=== PATIENT | female | born 1960 | race Caucasian/White ===

== ENCOUNTER → 2018-11-08 09:23 | Outpatient (CLI) | payer BC, SELFPAY ==
[2018-11-07 11:03] VITALS: BMI 26.8
[2018-11-08 11:10] LABS: Cholesterol 189 mg/dL (200); Glucose 90 mg/dL (74-106); High Density Lipoprotein 59 mg/dL; Triglycerides 57 mg/dL; Very Low Density Lipoprotein 11 mg/dL (5-40)
[2018-11-08 11:21] LABS: Vitamin D,25 Hydroxy 27.5 ng/mL (29.95-100.01)
== END ==
PROVIDERS: Family Provider Family Medicine; PCP Family Medicine; Referring Provider Obstetrics & Gynecology; Visit Provider Obstetrics & Gynecology
DX: Z01.419 Encounter for gynecological examination (general) (routine) without abnormal findings (principal)
CPT/HCPCS: 36415; 80061; 82306; 82947

== ENCOUNTER → 2018-11-17 13:33 | Outpatient (CLI) | payer BC, SELFPAY ==
[2018-11-07 11:03] VITALS: BMI 26.8
--- NOTE | 2018-11-17 13:36 | BI_ITS ---
MAMMOGRAPHY - BILATERAL SCREENING REASON FOR EXAM: Female, 58 years old. Routine annual screening examination. PERTINENT HISTORY: Non-contributory. TECHNIQUE: Digital bilateral breast oz (3D mammographic acquisition) in the CC and MLO projections. 2-D mediolateral oblique (MLO) and craniocaudad (CC) views of both breasts were obtained. CAD: Full Field Digital Mammography with Computer Added Detection was performed. COMPARISON: Comparison is made with prior study dated September 01, 2017 and November 14, 2015. FINDINGS: Breast Composition: The breasts are extremely dense, which lowers the sensitivity of mammography. There are no dominant masses or suspicious calcifications. No other significant abnormalities are identified. There has been no significant change since the prior study. BI/SCREEN MAMM (CAD) W/OZ BILAT IMPRESSION: Stable bilateral screening mammogram. Yearly follow-up mammogram recommended. (A) ASSESSMENT CATEGORY: BIRADS Category 1: Negative. A letter regarding these results will be sent to the patient by the facility within 30 days. Approximately 10% of breast cancers are not detected by mammography. A normal mammogram should not delay biopsy of a clinically suspicious abnormality. [id number] Electronically Signed: River Alanis, at 15:21 EST , Service support ,
== END ==
PROVIDERS: Family Provider Family Medicine; PCP Family Medicine; Visit Provider Obstetrics & Gynecology
DX: Z12.31 Encounter for screening mammogram for malignant neoplasm of breast (principal)
CPT/HCPCS: 77063; 77067

== ENCOUNTER → 2019-10-26 | Outpatient (CLI) | payer BC, SELFPAY ==
[2019-10-12 16:00] VITALS: BMI 26.8
--- NOTE | 2019-10-26 13:54 | BD_ITS ---
STUDY: DUAL ENERGY X-RAY ABSORPTIOMETRY / DXA REASON FOR EXAM: Female, 59 years old. Age of isabella- 55. Pat is 157.8# and 64 and quot;. Past use of a diuretic. Takes Calcium and a multi-vit off and on. Exercises off and on. TECHNIQUE: Bone Mineral Density (BMD) measurements of lumbar spine and bilateral hips were obtained. COMPARISON: None. FINDINGS: Lumbar Spine (L1-L4): g/cm2 (1.221) / T-score (0.3) / Z-score (1.6) Findings are suggestive of normal bone density with a low fracture risk. Left Femur Total: g/cm2 (1.004) / T-score (0.0) / Z-score (0.9) Left Femoral Neck: g/cm2 (0.928) / T-score (-0.8) / Z-score (0.5) Right Femur Total: g/cm2 (0.994) / T-score (-0.1) / Z-score (0.8) Right Femoral Neck: g/cm2 (0.914) / T-score (-0.9) / Z-score (0.4) BD/Dexa Bone Density Study IMPRESSION: The patient is considered normal as outlined below according to World [employer] Organization (WHO) criteria with a low fracture risk. Reference Information: The T-score is the number of standard deviations above or below the standard which is normal for young adults at their peak bone mineral density. The World Health Organization (WHO) interprets the T-scores as follows: Above -1 Normal bone density Between -1 and -2.5 Osteopenia Equal to / or below -2.5 Osteoporosis As a practical clinical guideline, osteopenia may be graded as follows: Mild -1 through -1.5 Moderate -1.6 through -2.0 Severe -2.1 through -2.4 The Z-score is the number of standard deviations above or below age-matched controls. A Z-score of less than -1.5 would be considered abnormal. References: 1. NIH Osteoporosis and Related Bone Diseases http://www.osteo.org 2. International Society for Clinical Densitometry http://www.iscd.org 3. National Osteoporosis Foundation http://www.nof.org Electronically Signed: River Alanis, at 12:55 EST , Service support ,
== END | disposition home or self-care (01) ==
PROVIDERS: PCP Family Medicine; Referring Provider Obstetrics & Gynecology; Visit Provider Obstetrics & Gynecology
DX: E28.39 Other primary ovarian failure (principal)
CPT/HCPCS: 77080

== ENCOUNTER → 2019-10-30 | Outpatient (CLI) | payer BC, SELFPAY ==
[2019-10-30 10:33] VITALS: BMI 26.8
== END | disposition home or self-care (01) ==
LOC: LABSPEC 16:22
PROVIDERS: PCP Family Medicine; Referring Provider Nurse Practitioner Women's Health; Visit Provider Nurse Practitioner Women's Health
DX: N39.0 Urinary tract infection, site not specified (principal)
CPT/HCPCS: 87086; 87088; 87186

== ENCOUNTER → 2020-07-03 | Outpatient (CLI) | payer SELFPAY ==
[2020-07-03 09:18] VITALS: BMI 26.2
[2020-07-08 10:41] LABS: HPV APTIMA, High Risk Negative (Negative)
== END | disposition home or self-care (01) ==
LOC: LABSPEC 13:04
PROVIDERS: PCP Family Medicine; Referring Provider Nurse Practitioner Women's Health; Visit Provider Nurse Practitioner Women's Health
DX: Z12.4 Encounter for screening for malignant neoplasm of cervix (principal)
CPT/HCPCS: 87624; 88175; G0145

== ENCOUNTER → 2020-07-12 | Outpatient (CLI) | payer SELFPAY ==
[2020-05-10 10:21] VITALS: BMI 26.8
[2020-07-03 09:18] VITALS: BMI 26.2
--- NOTE | 2020-07-12 15:56 | BI_ITS ---
MAMMOGRAPHY - BILATERAL SCREENING REASON FOR EXAM: Female, 60 years old. Routine annual screening examination. PERTINENT HISTORY: Non-contributory. TECHNIQUE: Digital bilateral breast oz (3D mammographic acquisition) in the CC and MLO projections. 2-D mediolateral oblique (MLO) and craniocaudad (CC) views of both breasts were obtained. CAD: Full Field Digital Mammography with Computer Added Detection was performed. COMPARISON: Comparison is made with prior study dated 11/17/2018 and 09/01/2017. FINDINGS: Breast Composition: The breasts are extremely dense, which lowers the sensitivity of mammography. There are no dominant masses or suspicious calcifications. No other significant abnormalities are identified. There has been no significant change since the prior study. BI/SCREEN MAMM (CAD) W/OZ BILAT IMPRESSION: Stable bilateral screening mammogram. Yearly follow-up mammogram recommended. (A) ASSESSMENT CATEGORY: BIRADS Category 1: Negative. A letter regarding these results will be sent to the patient by the facility within 30 days. Approximately 10% of breast cancers are not detected by mammography. A normal mammogram should not delay biopsy of a clinically suspicious abnormality. [id number] Electronically Signed: River Alanis, at 8:11 EST , Service support ,
== END | disposition home or self-care (01) ==
LOC: OPBI 15:56
PROVIDERS: PCP Family Medicine; Referring Provider Obstetrics & Gynecology; Visit Provider Obstetrics & Gynecology
DX: Z12.31 Encounter for screening mammogram for malignant neoplasm of breast (principal)
CPT/HCPCS: 77063; 77067

== ENCOUNTER → 2021-07-14 | Outpatient (CLI) | payer SELFPAY | END | disposition home or self-care (01) | PROVIDERS: PCP Family Medicine; Referring Provider Obstetrics & Gynecology; Visit Provider Obstetrics & Gynecology | DX: R30.0 Dysuria (principal) | CPT/HCPCS: 87086; 87088; 87186 ==

== ENCOUNTER → 2021-07-24 09:34 | Outpatient (CLI) | payer SELFPAY ==
[2021-07-24 12:34] LABS: Vitamin D,25 Hydroxy 41.5 ng/mL
[2021-07-24 12:41] LABS: ALB/GLOB Ratio 0.9 RATIO (0.9-2.4); AST(SGOT) 24 U/L (15-37); Alanine Aminotransfer ALT/SGPT 24 U/L (13-56); Albumin, Serum 3.7 g/dL (3.2-5.0); Alkaline Phosphatase 72 U/L (45-117); Anion Gap 6 (5-15); BUN 21 mg/dL (7-18); BUN/Creat Ratio 24.3 RATIO (10-20); Calcium,Total 8.9 mg/dL (8.5-10.1); Chloride 104 mmol/L (98-107); Cholesterol 203 mg/dL (200); Creatinine, Serum 0.86 mg/dL (0.55-1.02); EST Glomerular Filtration Rate 71 mL/min (>60); Est Glom Filt Rate - Afr Amer 86 mL/min (>60); Globulin 3.9 g/dL (2.2-4.2); Glucose 79 mg/dL (74-106); High Density Lipoprotein 56 mg/dL; Potassium 4.1 mmol/L (3.5-5.1); Protein, Total 7.6 g/dL (6.4-8.2); Sodium Level 139 mmol/L (136-145); Thyroid Stim Hormone (TSH) 3.04 uIU/mL (0.358-3.74); Triglycerides 75 mg/dL; Very Low Density Lipoprotein 15 mg/dL (5-40)
== END ==
PROVIDERS: PCP Family Medicine; Referring Provider Obstetrics & Gynecology; Visit Provider Obstetrics & Gynecology
DX: Z01.419 Encounter for gynecological examination (general) (routine) without abnormal findings (principal)
CPT/HCPCS: 36415; 80053; 80061; 82306; 84443

== ENCOUNTER → 2021-08-06 12:41 | Outpatient (CLI) | payer SELFPAY ==
--- NOTE | 2021-08-06 12:48 | BI_ITS ---
MAMMOGRAPHY - BILATERAL SCREENING 3-D TOMOSYNTHESIS REASON FOR EXAM: Female, 61 years old. Routine screening PERTINENT HISTORY: No significant family history. TECHNIQUE: 2-D mammograms and 3-D Tomosynthesis of the breast (s) were performed. CAD was performed. COMPARISON: 07/12/2020 FINDINGS: The breast composition is heterogeneously dense that can obscure small breast masses. Scattered benign calcifications are seen. No dense spiculated masses or suspicious microcalcifications are identified. No architectural distortion is identified. There is no skin thickening or retraction. There has been no significant change since the prior study. BI/SCRN MAMM (CAD)W/OZ BILAT IMPRESSION: No mammographic signs of malignancy. Routine yearly mammograms recommended. ASSESSMENT CATEGORY: BIRADS Category 2: Benign. A letter regarding these results will be sent to the patient by the facility within 30 days. FOLLOW UP RECOMMENDATION: Yearly follow up mammogram recommended. (A) Approximately 10% of breast cancers are not detected by mammography. A normal mammogram should not delay biopsy of a clinically suspicious abnormality. Electronically Signed: Robert Mace MD at 14:25 EST , Service support ,
== END ==
PROVIDERS: PCP Family Medicine; Referring Provider Obstetrics & Gynecology; Visit Provider Obstetrics & Gynecology
DX: Z12.31 Encounter for screening mammogram for malignant neoplasm of breast (principal)
CPT/HCPCS: 77063; 77067

== ENCOUNTER → 2022-01-16 | Outpatient (CLI) | payer SELFPAY ==
--- NOTE | 2022-01-16 12:04 | US_ITS ---
STUDY: RENAL ULTRASOUND - COMPLETE REASON FOR EXAM: Female, 61 years old. UTI TECHNIQUE: Ultrasound evaluation of the kidneys was performed with real-time and static villar-scale imaging. COMPARISON: None. FINDINGS: RIGHT KIDNEY: Normal location of the right kidney, which is normal in size. The right kidney measures 11.4 cm x 5.6 cm x 4.5 cm. There is a normal cortex of the right kidney. The renal cortex measures 1.3 cm. There is a 1.7 cm x 1.6 cm x 1.6 cm right parapelvic cyst. There are no right renal calculi. There is no right hydronephrosis. DISTAL RIGHT URETER: There is non-visualization of the distal right ureter. There is no demonstrated right ureterovesical junction calculus. There is a visualized right ureteral jet. LEFT KIDNEY: Normal location of the left kidney, which is normal in size. The left kidney measures 11 cm x 4.7 cm x 5.4 cm. There is a normal cortex of the left kidney. The renal cortex measures 1.2 cm. Small parapelvic cysts are seen. The largest measures 9 mm x 9 mm x 10 mm. There are no left renal calculi. There is no left hydronephrosis. DISTAL LEFT URETER: There is non-visualization of the distal left ureter. There is no demonstrated left ureterovesical junction calculus. There is a visualized left ureteral jet. BLADDER: The distended urinary bladder has a volume of 280 ml. There is a normal wall thickness of the distended urinary bladder. There is no demonstrated mass within the urinary bladder. There are no demonstrated bladder calculi. In the right hemipelvis, incidental note is made of a 6.5 cm x 5.3 cm x 5.6 cm solid mass. This is separate from the uterus. A dedicated ultrasound of the pelvis is recommended. US/Kidney and Bladder IMPRESSION: Bilateral parapelvic cysts. Incidental note is made of a 6.5 cm x 5.3 cm x 5.6 cm solid mass in the right adnexa. A dedicated pelvic sonogram is recommended. Electronically Signed: River Alanis MD at 14:42 EDT ,
== END | disposition home or self-care (01) ==
PROVIDERS: Visit Provider Urology
DX: N39.0 Urinary tract infection, site not specified (principal)
CPT/HCPCS: 76770

== ENCOUNTER → 2022-06-04 | Outpatient (CLI) | payer SELFPAY ==
--- NOTE | 2022-06-04 10:29 | RAD_ITS ---
STUDY: X-RAY - LEFT KNEE REASON FOR EXAM: Medial left knee pain and swelling for 1 to 2 months, no specific injury. TECHNIQUE: 4 view(s) of the knee. COMPARISON: None. FINDINGS: Normal visualized distal femur. Normal visualized proximal tibia and fibula. Normal proximal tibiofibular articulation. There is mild joint space narrowing of the medial femorotibial compartment. Normal lateral femorotibial compartment. Normal patellofemoral articulation. The soft tissue structures are unremarkable. RAD/Knee 4 or More Views IMPRESSION: Mild arthrosis of the medial femorotibial compartment. Electronically Signed: Emmanuel Clarke MD at 15:03 EDT ,
== END | disposition home or self-care (01) ==
LOC: MTLAB 10:20 → MTRAD 10:22
PROVIDERS: PCP Internal Medicine; Referring Provider Internal Medicine; Visit Provider Internal Medicine
DX: M25.562 Pain in left knee (principal)
CPT/HCPCS: 73564

== ENCOUNTER → 2022-08-20 | Outpatient (CLI) | payer SELFPAY ==
--- NOTE | 2022-08-20 09:51 | BI_ITS ---
MAMMOGRAPHY - BILATERAL SCREENING REASON FOR EXAM: Female, 62 years old. Routine annual screening examination. PERTINENT HISTORY: Non-contributory. TECHNIQUE: Digital bilateral breast oz (3D mammographic acquisition) in the CC and MLO projections. 2-D mediolateral oblique (MLO) and craniocaudad (CC) views of both breasts were obtained. CAD: Full Field Digital Mammography with Computer Added Detection was performed. COMPARISON: Comparison is made with prior study 08/06/2021 and 07/12/2020. FINDINGS: Breast Composition: The breasts are extremely dense, which lowers the sensitivity of mammography. There are no dominant masses or suspicious calcifications. Stable small benign-appearing bilateral axillary. No other significant abnormalities are identified. There has been no significant change since the prior study. BI/SCRN MAMM (CAD)W/OZ BILAT IMPRESSION: Stable bilateral screening mammogram. Yearly follow-up mammogram recommended. (A) ASSESSMENT CATEGORY: BIRADS Category 2: Benign. A letter regarding these results will be sent to the patient by the facility within 30 days. Approximately 10% of breast cancers are not detected by mammography. A normal mammogram should not delay biopsy of a clinically suspicious abnormality. [id number] Electronically Signed: River Alanis MD at 11:53 EST ,
== END | disposition home or self-care (01) ==
PROVIDERS: PCP Internal Medicine; Referring Provider Obstetrics & Gynecology; Visit Provider Obstetrics & Gynecology
DX: Z12.31 Encounter for screening mammogram for malignant neoplasm of breast (principal)
CPT/HCPCS: 77063; 77067

== ENCOUNTER → 2023-09-15 | Outpatient (CLI) | payer SELFPAY ==
--- NOTE | 2023-09-15 08:45 | BI_ITS ---
MAMMOGRAPHY - BILATERAL SCREENING REASON FOR EXAM: Female, 63 years old. Routine annual screening examination. PERTINENT HISTORY: Non-contributory. TECHNIQUE: Digital bilateral breast oz (3D mammographic acquisition) in the CC and MLO projections. 2-D mediolateral oblique (MLO) and craniocaudad (CC) views of both breasts were obtained. CAD: Full Field Digital Mammography with Computer Added Detection was performed. COMPARISON: Comparison is made with prior study dated August 20, 2022 and August 06, 2021. FINDINGS: Breast Composition: The breasts are extremely dense, which lowers the sensitivity of mammography. There are no dominant masses or suspicious calcifications. No other significant abnormalities are identified. There has been no significant change since the prior study. BI/SCRN MAMM (CAD)W/OZ BILAT IMPRESSION: Stable bilateral screening mammogram. Yearly follow-up mammogram recommended. (A) ASSESSMENT CATEGORY: BIRADS Category 1: Negative. A letter regarding these results will be sent to the patient by the facility within 30 days. Approximately 10% of breast cancers are not detected by mammography. A normal mammogram should not delay biopsy of a clinically suspicious abnormality. [id number] Electronically Signed: River Alanis MD at 13:10 EST ,
== END | disposition home or self-care (01) ==
PROVIDERS: PCP Internal Medicine; Referring Provider Obstetrics & Gynecology; Visit Provider Obstetrics & Gynecology
DX: Z12.31 Encounter for screening mammogram for malignant neoplasm of breast (principal)
CPT/HCPCS: 77063; 77067

== ENCOUNTER → 2024-08-02 | Outpatient (CLI) | payer OTHER, SELFPAY ==
--- NOTE | 2024-08-02 11:50 | BD_ITS ---
STUDY: DUAL ENERGY X-RAY ABSORPTIOMETRY / DXA REASON FOR EXAM: Female, 64 years old. Estrogen Deficiency TECHNIQUE: Bone Mineral Density (BMD) measurements of lumbar spine and bilateral hips were obtained. COMPARISON: Comparison is made with prior study dated October 26, 2019. FINDINGS: Lumbar Spine (L1-L4): g/cm2 (1.069) / T-score (0.1) / Z-score (1.9) Findings are suggestive of normal bone density with a low fracture risk. Left Femur Total: g/cm2 (0.911) / T-score (-0.3) / Z-score (1.0) Left Femoral Neck: g/cm2 (0.735) / T-score (-1.0) / Z-score (0.5) Right Femur Total: g/cm2 (0.886) / T-score (-0.5) / Z-score (0.8) Right Femoral Neck: g/cm2 (0.713) / T-score (-1.2) / Z-score (0.3) The T-Scores on the most recent prior examination were: Lumbar Spine (L1-L4): There has been worsening of bone density since the previous examination. Left Femur Total: which represents a worsening of .8%. Right Femur Total: which represents a worsening of 4.5%. BD/Dexa Bone Density Study IMPRESSION: The patient is considered osteopenic as outlined below according to World [place] Organization (WHO) criteria with a low fracture risk. There has been worsening of bone density since the previous examination. Reference Information: The T-score is the number of standard deviations above or below the standard which is normal for young adults at their peak bone mineral density. The World Health Organization (WHO) interprets the T-scores as follows: Above -1 Normal bone density Between -1 and -2.5 Osteopenia Equal to / or below -2.5 Osteoporosis As a practical clinical guideline, osteopenia may be graded as follows: Mild -1 through -1.5 Moderate -1.6 through -2.0 Severe -2.1 through -2.4 The Z-score is the number of standard deviations above or below age-matched controls. A Z-score of less than -1.5 would be considered abnormal. References: 1. NIH Osteoporosis and Related Bone Diseases www osteo.org 2. International Society for Clinical Densitometry www iscd.org 3. National Osteoporosis Foundation www nof.org Electronically Signed: River Alanis MD at 15:25 EST ,
--- NOTE | 2024-08-02 11:50 | BI_ITS ---
MAMMOGRAPHY - BILATERAL SCREENING REASON FOR EXAM: Female, 64 years old. Routine annual screening examination. PERTINENT HISTORY: Non-contributory. TECHNIQUE: Digital bilateral breast oz (3D mammographic acquisition) in the CC and MLO projections. 2-D mediolateral oblique (MLO) and craniocaudad (CC) views of both breasts were obtained. CAD: Full Field Digital Mammography with Computer Added Detection was performed. COMPARISON: Comparison is made with prior study dated September 15, 2023 and August 20, 2022. FINDINGS: Breast Composition: The breasts are extremely dense, which lowers the sensitivity of mammography. There are no dominant masses or suspicious calcifications. No other significant abnormalities are identified. There has been no significant change since the prior study. BI/SCRN MAMM (CAD)W/OZ BILAT IMPRESSION: Stable bilateral screening mammogram. Yearly follow-up mammogram recommended. (A) ASSESSMENT CATEGORY: BIRADS Category 1: Negative. A letter regarding these results will be sent to the patient by the facility within 30 days. Approximately 10% of breast cancers are not detected by mammography. A normal mammogram should not delay biopsy of a clinically suspicious abnormality. [id number] Electronically Signed: River Alanis MD at 13:17 EST ,
== END | disposition home or self-care (01) ==
LOC: OPBD 11:50
PROVIDERS: PCP Internal Medicine; Referring Provider Obstetrics & Gynecology; Visit Provider Obstetrics & Gynecology
DX: Z12.31 Encounter for screening mammogram for malignant neoplasm of breast (principal); E28.39 Other primary ovarian failure
CPT/HCPCS: 77063; 77067; 77080

== ENCOUNTER → 2024-09-12 | Outpatient (CLI) | payer MEDICARE, SELFPAY | END | disposition home or self-care (01) | LOC: MTLAB 15:21 | PROVIDERS: PCP Internal Medicine; Referring Provider Urology; Visit Provider Urology | DX: N39.0 Urinary tract infection, site not specified (principal) | CPT/HCPCS: 36415; 87086; 87088 ==

== ENCOUNTER → 2025-03-01 | Outpatient (CLI) | payer MEDICARE, SELFPAY ==
--- OUTSIDE RECORDS SUMMARY | 2025-03-01 07:43 | XMS RPT_ITS | CCD ---
Author Organization [facility] Care Team Providers Care Senior Windows Systems Administrator Name Role Phone Dora Mcintyre MD Unavailable [phone] ARTHUR Kumar RN, Wanda A Unavailable Unavailabl e Bahman SHREDDING SPECIALIST, Juliana S Unavailable ARTHUR Kumar RN, Wanda A Unavailable Unavailabl e Parnell SHREDDING SPECIALIST, Juliana S Unavailable ARTHUR Kumar RN, Wanda A Unavailable Unavailabl francois Kumar RN RN, Wanda A Unavailable Unavailabl e Dora Mcintyre MD Unavailable [phone] No, Physician Primary Care Provider Unavailabl e Fast DO, Tahira A Primary Care Provider Fast DO, Tahira A Unavailable Slarb FIRE MANAGER, Danielle Unavailable Unavailable Unavailable Unavailable Fast DO, Tahira A Attending Unavailable Fast DO, Tahira A Consulting Unavailable Manchak JOURNEYMAN MOLDER, Jing Unavailable Unavailable Fast DO, Tahira A Unavailable ROSALIE MICHELLE Attending Unavai lable NO, PHYSICIAN Primary Care Unavailable No, Physician Primary Care Provider Unavailabl e Fast DO, Tahira A Primary Care Provider FAST, TAHIRA A Referring Unavailable FAST, TAHIRA A Primary Care Unavailable TYLER BAUTISTA Referring Unavai lable NO, PHYSICIAN Primary Care Unavailable HELEN GRANT Attending Unavailabl e Fast DO, Dr. Hoffmann Primary Care Provider [phone] Minoo ACOSTA, Dr. Baltazar Attending Provider Aure Bush Attending Unavailable Aure Bush Referring Unavailable Fast, Tahira Primary Care Unavailable Dora Mcintyre Attending Unavailable Dora Mcintyre Referring Unavailable Fast, Tahira Primary Care Unavailable Fast, Tahira Attending Unavailable Fast, Tahira Referring Unavailable Fast, Tahira Primary Care Unavailable Giovanny Hennessy Attending Unavailable Fast, Tahira Primary Care Unavailable Dora Mcintyre Attending Unavailable Fast, Tahira Referring Unavailable Fast, Tahira Primary Care Unavailable Allergies Allergy Classification Reported Allergen(s) Allergy Type Date of Onset Reaction(s) Facility Sulfonamides (antibiotic) (1 source) Sulfonamides (Antibiotic) Drug Allergy 10-19-19 06 [facility] (12 sources) sulfamethoxazole / trimethoprim drug allergy 12-29-19 17 [facility] (1 source) Sulfonamides (Antibiotic) Propensity to adverse reactions to drug 10-19-19 [facility] (11 sources) Sulfonamides (Antibiotic); Translations: [Sulfa Drugs] Allergy to substance (finding) [facility]; [facility] Work Phone: Comment on above: hives (5 sources) Sulfonamides (Antibiotic); Translations: [SULFA (SULFONAMIDE ANTIBIOTICS)] Allergy to substance 10-19-19 06 Unknown [facility] Repository (2 sources) Sulfonamides (Antibiotic) Propensity to adverse reactions to drug 10-19-19 06 [facility] (1 source) ALLERGIES NOT ON FILE; Translations: [ALLERGIES NOT ON FILE] Propensity to adverse reactions (disorder) [facility] 2 Repository (1 source) Sulfonamides (Antibiotic) Drug allergy (disorder) 06-07-20 [facility] Repository Medications Current Medications Medication Drug Class(es) Dates Sig (Normalized) Sig (Original) ALPRAZolam 0.25 mg disintegrating oral tablet (1 source) Benzodiazepine Start: 01-28-2022 ALPRAZolam (NIRAVAM) dissolvable tablet 0.25 mg amoxicillin 875 mg oral tablet (1 source) Penicillin-class Antibacterial Start: 05-16-2023 End: 05-26-2023 take 1 tablet by mouth twice daily amoxicillin (AMOXIL) 875 MG tablet Indications: UTI symptoms Take 1 (one) tablet (875 mg total) by mouth 2 (two) times a day for 10 days . 20 tablet 0 05/16/2023 05/26/2023 Active BLACK ELDERBERRY PO (1 source) Start: 07-03-2020 BLACK ELDERBERRY PO Take by mouth 0 07/03/2020 Active calcium ascorbate 500 mg oral tablet (6 sources) Start: 05-10-2020 take 1 tablet by mouth once daily Ascorbate Calcium (Vitamin C) 500 mg tablet Active 500 mg PO DAILY May 10, 2020 12:00am calcium chloride 0.0014 meq/ml / potassium chloride 0.004 meq/ml / sodium chloride 0.103 meq/ml / sodium lactate 0.028 meq/ml injectable solution (2 sources) Start: 01-28-2022 lactated ringers infusion cholecalciferol 0.05 mg oral capsule (12 sources) Vitamin D Start: 07-03-2020 take 1 capsule by mouth once daily Cholecalciferol (Vitamin D3) 50 mcg (2,000 unit) capsule Active 50 ug PO DAILY July 03, 2020 12:00am Vitamin D 37349 UNIT Oral Capsule qd (90477 U) Active cholecalciferol, vitamin D3, (VITAMIN D3 ORAL) (3 sources) cholecalciferol, vitamin D3, (VITAMIN D3 ORAL) Take by mouth . Active cholecalciferol, vitamin D3, (VITAMIN D3 ORAL) Take by mouth . 0 Active Cranberry Fruit (3 sources) Non-Standardized Food Allergenic Extract, Non-Standardized Plant Allergenic Extract Start: 02-02-2023 take 1 capsule by mouth once daily Cranberry Fruit 400 mg capsule Active 400 mg PO DAILY February 02, 2023 12:00am administer with a meal Start: 02-02-2023 take 400 mg by mouth once good y Cranberry Active 400 MG PO DAILY February 01, 2023 11:00pm administer with a meal Cranberry 1000 M G CAPS Take by mouth 0 Active D-Mannose (1 source) Start: 06-07-2024 take 1 capsule by mouth once daily D-Mannose 500 mg capsule Active mg PO DAILY June 07, 2024 12:00am 1 ml diphenhydrAMINE hydrochloride 50 mg/ml cartridge (1 source) Histamine-1 Receptor Antagonist Start: 01-28-2022 End: 01-28-2022 diphenhydrAMINE (BENADRYL) injection 12.5 mg docusate sodium 100 mg oral capsule (1 source) Start: 01-28-2022 take 1 capsule by mouth once daily as needed for constipation docusate sodium (COLACE) 100 MG capsule Take 1 capsule by mouth daily as needed for Constipation 30 capsule 0 01/28/2022 Active 2 ml fentaNYL 0.05 mg/ml injection (2 sources) Opioid Agonist Start: 01-28-2022 fentaNYL (SUBLIMAZE) injection 50 mcg Start: 01-28-2022 fentaNYL (SUBL IMAZE) injection 25 mcg ibuprofen 600 mg oral tablet (1 source) Nonsteroidal Anti-inflammatory Drug Start: 01-28-2022 take 1 tablet by mouth three times daily as needed for pain ibuprofen (ADVIL;MOTRIN) 600 MG tablet Take 1 tablet by mouth 3 times daily as needed for Pain 30 tablet 1 01/28/2022 Active labetalol (NORMODYNE;TRANDAT E) injection 5 mg (1 source) Start: 01-28-2022 labetalol (NORMODYNE;TRANDAT E) injection 5 mg Lactobacillus Combination No.8 (Adult Probiotic) 3 billion cell capsule (5 sources) Start: 05-10-2020 take 3 capsules by mouth once daily Lactobacillus Combination No.8 (Adult Probiotic) 3 billion cell capsule Active 3000 MMU CELLS PO DAILY May 10, 2020 10:02am administer with a meal Start: 05-10-2020 take 3 capsules by m outh once daily Lactobacillus Combination No.8 (Adult Probiotic) 3 billion cell capsule Active 3000 NMA PO DAILY May 10, 2020 12:00am administer with a meal Start: 05-10-2020 take 3 capsules by m outh once daily Lactobacillus Combination No.8 (Adult Probiotic) 3 billion cell capsule Active 3000 MMU CELLS PO DAILY May 09, 2020 11:00pm administer with a meal lactobacillus combo no.11 (P robiotic) 15 billion cell CpSP (3 sources) lactobacillus co mbo no.11 (Probiotic) 15 billion cell CpSP Take by mouth . Active lactobacillus co mbo no.11 (Probiotic) 15 billion cell CpSP Take by mouth . 0 Active 10 ml lidocaine hydrochloride 10 mg/ml injection (1 source) Antiarrhythmic, Amide Local Anesthetic Start: 01-28-2022 End: 01-28-2022 lidocaine PF 1 % injection 1 mL 1 ml LORazepam 2 mg/ml injection (1 source) Benzodiazepine Start: 01-28-2022 End: 01-28-2022 LORazepam (ATIVAN) injection 0.5 mg magnesium oxide 500 mg oral capsule (1 source) Start: 06-07-2024 take 1 capsule by mouth once daily Magnesium Oxide 500 mg capsule Active 500 mg PO daily June 07, 2024 12:00am meloxicam 15 mg oral tablet (1 source) Nonsteroidal Anti-inflammatory Drug Start: 08-19-2024 meloxicam (MOBIC) 15 MG tablet 08/19/2024 Active 1 ml meperidine hydrochloride 25 mg/ml cartridge (1 source) Opioid Agonist Start: 01-28-2022 meperidine (DEMEROL) injection 12.5 mg MULTIPLE VITAMIN PO (1 source) Start: 05-10-2020 MULTIPLE VITAMIN PO Take by mouth 0 05/10/2020 Active Multivitamin preparation (4 sources) Start: 05-10-2020 take 1 tablet by mouth once daily Multivitamin Active 1 TABLET PO DAILY May 10, 2020 10:01am Start: 05-10-2020 End: 02-02-2023 take 1 tablet by mouth once daily Multivitamin Discontinued 1 TABLET PO DAILY May 09, 2020 11:00pm February 02, 2023 12:35pm Start: 05-10-2020 take 1 tablet by nate th once daily Multivitamin Active 1 TABLET PO DAILY May 09, 2020 11:00pm nitrofurantoin, macrocrystals 25 mg / nitrofurantoin, monohydrate 75 mg oral capsule (17 sources) Nitrofuran Antibacterial Start: 08-02-2024 take 1 capsule by mouth twice daily nitrofurantoin, macrocrystal-monohydrate, (MACROBID) 100 MG capsule Take 1 (one) capsule (100 mg total) by mouth 2 (two) times a day . 08/02/2024 Active Start: 12-28-2016 End: 04-21-2017 MACROBID 100 MG CAPS 1 capsu le twice daily NITROFURANTOIN MONOHYD MACRO [id number] Juliana Ruggiero NP 2 ml ondansetron 2 mg/ml injection (1 source) Serotonin-3 Receptor Antagonist Start: 01-28-2022 End: 01-28-2022 ondansetron (ZOFRAN) injection 4 mg oxyCODONE hydrochloride 5 mg oral tablet (1 source) Opioid Agonist Start: 01-28-2022 End: 02-02-2022 oxyCODONE (ROXICODONE) 5 MG immediate release tablet Indications: S/P laparoscopic hysterectomy Take 1 tablet by mouth every 6 hours as needed for Pain for up to 5 days. Intended supply: 5 days. Take lowest dose possible to manage pain 20 tablet 0 01/28/2022 02/02/2022 Active phenazopyridine hydrochloride 200 mg oral tablet (13 sources) Start: 04-14-2021 End: 04-16-2021 take 1 tablet by mouth three times daily as needed for pain phenazopyridine (PYRIDIUM) 200 MG tablet Take 1 (one) tablet (200 mg total) by mouth 3 (three) times a day as needed for pain . 6 tablet 0 04/14/2021 04/16/2021 Active Start: 04-02-2017 phenazopyridin e (PYRIDIUM) 100 MG tablet Take by mouth every 8 (eight) hours 0 04/02/2017 Active Start: 04-02-2017 take 1 tablet by nate th three times daily PYRIDIUM 100 MG TABS One tablet by mouth three times daily PHENAZOPYRIDINE HCL [id number] Dora Mcintyre MD Probiotic Product (PROBIOTIC -10 PO) (1 source) Probiotic Produc t (PROBIOTIC-10 PO) Take by mouth 0 Active 5 ml sodium chloride 9 mg/ml injection (9 sources) Start: 01-28-2022 sodium chlorid e flush 0.9 % injection 5-40 mL Start: 01-28-2022 0.9 % sodium c hloride bolus Start: 01-28-2022 0.9 % sodium c hloride infusion Start: 01-28-2022 sodium chlorid e flush 0.9 % injection 5-40 mL Turmeric extract (5 sources) Start: 07-03-2020 Turmeric Activ e MG PO July 03, 2020 9:17am Start: 07-03-2020 End: 02-02-2023 Turmeric 400 mg capsule Disc ontinued mg PO July 03, 2020 12:00am February 02, 2023 1:35pm Start: 07-03-2020 End: 02-02-2023 Turmeric Discontinued MG PO July 02, 2020 11:00pm February 02, 2023 12:35pm Start: 07-03-2020 Turmeric Activ e MG PO July 02, 2020 11:00pm Zinc (6 sources) Start: 07-03-2020 Zinc 25 MG TAB S Take by mouth 0 07/03/2020 Active Start: 07-03-2020 take 50 mg by mouth once daily Zinc Active 50 MG PO DAILY July 03, 2020 9:16am Start: 07-03-2020 take 1 tablet by mouth once da baldemar Zinc 50 mg tablet Active 50 mg PO DAILY July 03, 2020 12:00am Start: 07-03-2020 take 50 mg by mouth once daily Zinc Active 50 MG PO DAILY July 02, 2020 11:00pm Zinc Sulfate (3 sources) zinc sulfate (ZI NC-15 ORAL) Take by mouth . Active zinc sulfate (ZI NC-15 ORAL) Take by mouth . 0 Active Completed/Discontinued Medications Medication Drug Class(es) Dates Sig (Normalized) Sig (Original) acetaminophen 500 mg oral tablet (1 source) Start: 01-28-2022 End: 01-28-2022 acetaminophen (TYLENOL) tablet 1,000 mg Ascorbic Acid (12 sources) Vitamin C Vitamin C Active take 1 tablet by mouth once good y Ascorbic Acid (VITAMIN C) 250 MG tablet Take 250 mg by mouth daily 0 Active calcium carbonate 1500 mg / cholecalciferol 200 unt oral tablet (11 sources) Vitamin D Calcium 600+D 600-200 MG-UNIT Oral Tablet qd (600-200 MG-UNIT) Inactive cefdinir 300 mg oral capsule (6 sources) Cephalosporin Antibacterial Start: 10-05-19 End: 10-12-19 take 1 capsule by mouth twice daily cefdinir 300 mg oral capsule 1 (one) capsule 1 tab bid for 7 days Quantity: 14 {Capsule} Refills: 0 Ordered: 05-Oct-2022 Jing Del Rosario CMA Start : 05-Oct-2022 End : 12-Oct-2022 Inactive cephalexin 500 mg oral capsule (15 sources) Cephalosporin Antibacterial Start: 07-14-20 End: 07-21-20 take 1 capsule by mouth three times daily Cephalexin 500 mg capsule Discontinued 500 mg PO THREE TIMES A DAY 02 04July 14, 2021 12:00am July 20, 2021 12:00am July 21, 2021 1:01am space evenly during waking hours Start: 05-10-2020 End: 07-03-2020 take 1 capsule by mouth every six hours Cephalexin (Keflex) 250 mg capsule Discontinued 250 mg PO EVERY 6 HOURS May 10, 2020 12:00am July 03, 2020 9:16am chlorhexidine gluconate 20 mg/ml medicated pad (1 source) Start: 01-28-2022 End: 01-28-2022 chlorhexidine 2% cloth ciprofloxacin 500 mg oral tablet (20 sources) Quinolone Antimicrobial Start: 06-03-2023 take 1 tablet by mouth twice daily ciprofloxacin HCl 500 mg oral tablet 1 (one) tablet bid for 10 days Quantity: 20 {Tablet} Refills: 0 Ordered: 03-Jun-2023 Danielle Salvador LPN Start : 03-Jun-2023 Active Start: 05-03-2023 take 1 tablet by nate th twice daily ciprofloxacin HCl 500 mg oral tablet 1 (one) tablet bid for 7 days Quantity: 14 {Tablet} Refills: 0 Ordered: 03-May-2023 Fast DO, Tahira A Fast DO, Tahira A Start : 03-May-2023 Active Start: 03-23-2023 take 1 tablet by nate twice daily ciprofloxacin HCl 500 mg oral tablet 1 (one) tablet bid for 7 days Quantity: 14 {Tablet} Refills: 0 Ordered: 23-Mar-2023 Fast DO, Tahira A Fast DO, Tahira A Start : 23-Mar-2023 Active Start: 02-12-2023 take 1 tablet by nate twice daily ciprofloxacin HCl 500 mg oral tablet 1 (one) tablet bid for 7 days Quantity: 14 {Tablet} Refills: 0 Ordered: 12-Feb-2023 Fast DO, Tahira A Fast DO, Tahira A Start : 12-Feb-2023 Active Comments: verbally called [phone] Start: 04-14-2021 End: 04-21-2021 take 1 tablet by mouth twice daily ciprofloxacin HCl (Cipro) 500 MG tablet Take 1 (one) tablet (500 mg total) by mouth 2 (two) times a day for 7 days . 14 tablet 0 04/14/2021 04/21/2021 Active Start: 01-09-2019 End: 01-12-2019 take 1 tablet by mouth twice daily Ciprofloxacin Hcl 500 mg tablet Discontinued 500 mg PO TWICE A DAY 6 January 09, 2019 12:00am January 11, 2019 12:00am January 12, 2019 12:08am Start: 04-13-2017 take 1 tablet by nate th twice daily CIPRO 500 MG TABS One tablet by mouth twice daily x 3 days CIPROFLOXACIN HCL [id number] Juliana Ruggiero NP Comment on above: verbally called [phone] elderberry fruit 200 mg oral capsule (5 sources) Start: End: Elderberry Fruit 200 mg capsule Discontinued mg PO July 03, 2020 12:00am June 07, 2024 11:09am famotidine 20 mg oral tablet (1 source) Histamine-2 Receptor Antagonist Start: End: famotidine (PEPCID) tablet 20 mg gabapentin 100 mg oral capsule (1 source) Anti-epileptic Agent Start: End: gabapentin (NEURONTIN) capsule 100 mg Multivitamin Oral Tablet (11 sources) Multivitamin Ora l Tablet qd Active Multivitamin tablet (1 source) Start: End: Multivitamin tablet Discontinued 1 {tbl} PO DAILY May 10, 2020 12:00am February 02, 2023 1:35pm nitrofurantoin, macrocrystals 100 mg oral capsule (20 sources) Nitrofuran Antibacterial Start: End: take 1 capsule by mouth twice daily at mealtime Nitrofurantoin Macrocrystal 100 mg capsule Discontinued 100 mg PO TWICE A DAY 14 October 30, 2019 1:00am November 05, 2019 1:00am November 06, 2019 1:08am administer with food (meal or snack) Start: 04-02-2017 End: 04-21-2017 take 1 tablet by mouth twice daily MACRODANTIN 100 MG CAPS One tablet by mouth twice daily NITROFURANTOIN MACROCRYSTAL [id number] Dora Mcintyre MD Start: 12-28-2016 End: 04-21-2017 MACROBID 100 MG CAPS 1 capsu le twice daily NITROFURANTOIN MONOHYD MACRO [id number] Charles BROWNE Vitamin D 93656 UNIT Oral Ca psule (5 sources) Vitamin D 77028 UNIT Oral Capsule qd (10211 U) Active Problems Active Problems Problem Classification Problem Date Documented Date Episodic/Chronic Abdominal pain (1 source) Left upper quadrant pain; Translations: [Left upper quadrant pain] Onset: 02-23-2025 Episodic Disorders of lipid metabolism (20 sources) Hyperlipidemia; Translations: [Hyperlipidemia] Onset: 01-31-2024 03-10-2022 Chronic Comment on above: improved discussed c ontinued work on diet and ex Genitourinary symptoms and ill-defined conditions (4 sources) Dysuria; Translations: [Dysuria] Onset: 05-16-2023 Episodic Other connective tissue disease (20 sources) Cramp in lower limb; Translations: [Leg cramps] 02-20-2022 Episodic Other connective tissue disease (19 sources) Bilateral plantar fasciitis; Translations: [Plantar fasciitis, bilateral] 03-10-2022 Episodic Comment on above: has boot left is wor se Other connective tissue disease (1 source) Pain in right foot; Translations: [Pain in right foot] Onset: 01-23-2025 Episodic Other eye disorders (1 source) Hemorrhage of left vitreous body; Translations: [Vitreous hemorrhage, left eye] 08-21-2024 Chronic Other eye disorders (2 sources) Vitreous hemorrhage, left eye; Translations: [Vitreous hemorrhage, left eye] Onset: 08-21-2024 Chronic Other nervous system disorders (20 sources) Paresthesia; Translations: [Paresthesia] 03-10-2022 Episodic Other non-traumatic joint disorders (16 sources) Pain in left knee; Translations: [Left knee pain] 06-03-2022 Episodic Other nutritional; endocrine; and metabolic disorders (2 sources) Body mass index 25-29 - overweight; Translations: [BMI 26.0-26.9,adult] 06-03-2022 Episodic Other nutritional; endocrine; and metabolic disorders (14 sources) Overweight in adulthood with body mass index of 25 or more but less than 30; Translations: [BMI 26.0-26.9,adult] 06-03-2022 Episodic Residual codes; unclassified (16 sources) Influenza vaccination declined; Translations: [Influenza vaccination declined (Renamed from Refused influenza vaccine)] 06-03-2022 Episodic Residual codes; unclassified (16 sources) Non-smoker; Translations: [Nonsmoker] 06-03-2022 Episodic Spondylosis; intervertebral disc disorders; other back problems (20 sources) Lumbar radiculopathy; Translations: [Lumbar radiculopathy] 03-10-2022 Episodic Comment on above: doing chiropractic t herapy for this as needed Unclassified (2 sources) Screening for malignant neoplasm of colon ; Translations: [Encounter for screening for malignant neoplasm of colon] Onset: 05-03-2017 05-03-2017 Unclassified (2 sources) Screening for malignant neoplasm of cervix ; Translations: [Encounter for screening for malignant neoplasm of cervix] Onset: 05-03-2017 05-03-2017 Unclassified (2 sources) Gynecologic examination ; Translations: [Encounter for gynecological examination (general) (routine) without abnormal findings] Onset: 05-03-2017 05-03-2017 Unclassified (5 sources) Procedure carried out on subject; Translations: [Encounter for other screening for malignant neoplasm of breast] Onset: 04-02-2017 04-02-2017 Unclassified (20 sources) [facility] WELLNESS EXAM 03-10-2022 Unclassified (20 sources) Unclassified (3 sources) Plantar fasciitis, bilateral Unclassified (2 sources) Elevated high sensitivity C-reactive protein Past or Other Problems Problem Classification Problem Date Documented Da te Episodic/Chronic Other nervous system disorders (8 sources) Burning sensation of vagina; Translations: [Pelvic and perineal pain] Onset: 04-21-2017 04-21-2017 Episodic Unclassified (20 sources) Encounter for screening for diabetes mellitus; Translations: [Encounter for screening for lipoid disorders] Onset: 04-02-2017 05-03-2017 Episodic Comment on above: work onlowering infl ammatory foods / exercise Unclassified (4 sources) Leg cramps Unclassified (3 sources) vein ablation 04-02-2022 Comment on above: great saphenous vein ablation L&R Unclassified (4 sources) Unspecified Diagnosis 06-03-2023 Urinary tract infections (20 sources) Urinary tract infectious disease; Translations: [Recurrent urinary tract infection] Onset: 12-28-2016 Resolved: 04-02-2017 04-02-2017 Episodic Comment on above: urogyn consult Results Test Name Value Interpretation Reference Range Facility Foot min 3 Viewson 5 Foot min 3 Views [facility] Imaging Services [address] [place], [place] [id number] ([address] Foot min 3 Views MR#: [id number] Acct: [id number] Name: REGINA ALAMO Rep #: [id number] : 1960 F 64 From: Andrea Tsai MD PCP: Dr. Tahira Patel DO Status: DEP AMB Study: Foot min 3 Views Date of Exam: 01/23/25 Exam# [id number] Ordering Dr: Tahira Patel DO EXAM: DX foot minimum three views CLINICAL HISTORY: Pain, lateral, tender and swollen at 5th MTP COMPARISON: None available TECHNIQUE: Three views right foot FINDINGS: No fracture or dislocation. The joint spaces appear within limits. No osseous lesion identified. The soft tissues appear within limits. RAD/Foot min 3 Views IMPRESSION: No fracture or dislocation. If symptoms persist, may follow-up with repeat imaging in 7-10 days as warranted. Reading Location: [facility] CC: Dr. Tahira Patel DO Die Maintenance: Signed Normal [facility] Urine Cultureon 09-14-2024 URC Below infection leve l. Mixed Gram Positive Organisms [place] Count <1000 MIXC Mixed contaminants. Submit a new specimen if indicated. Normal [facility] Comment on above: Performed By: #### M 100.2200 #### [facility] Laboratory [address] [place], [place], [address] Dexa Bone Density Studyon Dexa Bone Density Study [facility] Imaging Services [address] [place], [place] [id number] Dexa Bone Density Study MR#: [id number] Acct: [id number] Name: REGINA ALAMO Rep #: [id number] : 1960 F 64 From: River espinal MD PCP: Dr. Tahira Patel DO Status: REG CLI Study: Dexa Bone Density Study Date of Exam: 08/02/24 Exam# [id number] Ordering Dr: Dora Mcintyre [id number] STUDY: DUAL ENERGY X-RAY ABSORPTIOMETRY / DXA REASON FOR EXAM: Female, 64 years old. Estrogen Deficiency TECHNIQUE: Bone Mineral Density (BMD) measurements of lumbar spine and bilateral hips were obtained. COMPARISON: Comparison is made with prior study dated October 26, 2019. FINDINGS: Lumbar Spine (L1-L4): g/cm2 (1.069) / T-score (0.1) / Z-score (1.9) Findings are suggestive of normal bone density with a low fracture risk. Left Femur Total: g/cm2 (0.911) / T-score (-0.3) / Z-score (1.0) Left Femoral Neck: g/cm2 (0.735) / T-score (-1.0) / Z-score (0.5) Right Femur Total: g/cm2 (0.886) / T-score (-0.5) / Z-score (0.8) Right Femoral Neck: g/cm2 (0.713) / T-score (-1.2) / Z-score (0.3) The T-Scores on the most recent prior examination were: Lumbar Spine (L1-L4): There has been worsening of bone density since the previous examination. Left Femur Total: which represents a worsening of .8%. Right Femur Total: which represents a worsening of 4.5%. BD/Dexa Bone Density Study IMPRESSION: The patient is considered osteopenic as outlined below according to World [place] Organization (WHO) criteria with a low fracture risk. There has been worsening of bone density since the previous examination. Reference Information: The T-score is the number of standard deviations above or below the standard which is normal for young adults at their peak bone mineral density. The World Health Organization (WHO) interprets the T-scores as follows: Above -1 Normal bone density Between -1 and -2.5 Osteopenia Equal to / or below -2.5 Osteoporosis As a practical clinical guideline, osteopenia may be graded as follows: Mild -1 through -1.5 Moderate -1.6 through -2.0 Severe -2.1 through -2.4 The Z-score is the number of standard deviations above or below age-matched controls. A Z-score of less than -1.5 would be considered abnormal. References: 1. NIH Osteoporosis and Related Bone Diseases www osteo.org 2. International Society for Clinical Densitometry www iscd.org 3. National Osteoporosis Foundation www nof.org Electronically Signed: River Alanis MD at 15:25 EST , CC: Dr. Tahira Patel DO; Dr. Dora Mcintyre MD Die Maintenance: Signed Normal [facility] SCRN MAMM (CAD)W/OZ BILATo n 08-02-2024 SCRN MAMM (CAD)W/OZ BILAT [facility] [facility] [address] [place] [address] SCRN MAMM (CAD)W/OZ BILAT MR#: [id number] Acct: [id number] Name: REGINA ALAMO Rep #: [id number] : 1960 F 64 From: River espinal MD PCP: Dr. Tahira Patel DO Status: REG CLI Study: SCRN MAMM (CAD)W/OZ BILAT Date of Exam: 07/15 Exam# [id number] Ordering Dr: Dora Mcintyre [id number] MAMMOGRAPHY - BILATERAL SCREENING REASON FOR EXAM: Female, 64 years old. Routine annual screening examination. PERTINENT HISTORY: Non-contributory. TECHNIQUE: Digital bilateral breast oz (3D mammographic acquisition) in the CC and MLO projections. 2-D mediolateral oblique (MLO) and craniocaudad (CC) views of both breasts were obtained. CAD: Full Field Digital Mammography with Computer Added Detection was performed. COMPARISON: Comparison is made with prior study dated September 15, 2023 and August 20, 2022. FINDINGS: Breast Composition: The breasts are extremely dense, which lowers the sensitivity of mammography. There are no dominant masses or suspicious calcifications. No other significant abnormalities are identified. There has been no significant change since the prior study. BI/SCRN MAMM (CAD)W/OZ BILAT IMPRESSION: Stable bilateral screening mammogram. Yearly follow-up mammogram recommended. (A) ASSESSMENT CATEGORY: BIRADS Category 1: Negative. A letter regarding these results will be sent to the patient by the facility within 30 days. Approximately 10% of breast cancers are not detected by mammography. A normal mammogram should not delay biopsy of a clinically suspicious abnormality. [id number] Electronically Signed: River Alanis MD at 13:17 EST , CC: Dr. Tahira Patel DO; Dr. Dora Mcintyre MD Die Maintenance: Signed Normal [facility] Electronics Engineering Technician Office Visit Reporton 06-07-2024 Electronics Engineering Technician Office Visit Report [facility] [address], [address] [place] [address] OFFICE VISIT Date of Service: 06/07/24 MR#: [id number] Acct: [id number] Name: REGINA ALAMO Rep #: [id number] : 1960 Provider: Dr. 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 Complaint: Annual Roll Carrier Required: No Is patient in pain?: No Feel stressed/tense/nervous /anxious/difficulty sleeping: not at all Allergies Sulfa (Sulfonamide Antibiotics) Allergy (Unknown, Verified 06/07/24 11:08) Unknown Medications ???Medication ???Instructions ???Recorded ???Confirmed ???Type ascorbate calcium (vitamin C) 500 500 mg PO DAILY 05/10/20 06/07/24 History mg tablet lactobacillus combination no.8 3 3,000 mmu cells PO DAILY 05/10/20 06/07/24 History billion cell capsule (Adult Probiotic) cholecalciferol (vitamin D3) 50 50 mcg PO DAILY 07/03/20 06/07/24 History mcg (2,000 unit) capsule zinc 50 mg tablet 50 mg PO DAILY 07/03/20 06/07/24 History cranberry 400 mg capsule 400 mg PO DAILY 02/02/23 06/07/24 History d-mannose 500 mg capsule mg PO DAILY 06/07/24 06/07/24 History magnesium oxide 500 mg capsule 500 mg PO QDAY 06/07/24 06/07/24 History Is last menstrual period known: No Post menopausal: Yes Patient : No : No [facility] Medical History History of back problems Arthritis Surgical History (Updated 02/02/23 @ 13:36 by Maribel Haider) S/P total hysterectomy vein ablation Social History (Updated 06/07/24 @ 11:11 by Juliana Hawkins) household members: spouse housing: house number of children: 3 current occupational status: unemployed Smoking Status: Never smoker alcohol intake: never substance use type: does not use caffeine: Yes what type of physical activity do you participate in: walking seatbelt use: always do you feel safe at home: Yes additional social history: Marco History 3 Elective abortions Hx Para 3 Spontaneous abortions Hx # Term Pregnancies Ectopic pregnancies Hx # Pregnancies Multiple births # of living children Past Pregnancies Del. Date Name GA/Weeks Outcome Route Bth Weight Gen Labor Lgth Anesthesia Del Locatn Provider FOB Unknown 1984 [facility] Unknown 1986 [place] Unknown 1991 [facility] HPI Encounter for routine gynecological examination Details: REGINA ALAMO is a 64 year old who presents for annual exam. living in [place] [facility] Last PAP: Hysterectomy History of abnormal PAP: Last mammogram: 09/15/2023 History of abnormal mammogram: Colon cancer screening: up to date 2022 Other preventative health care screenings: PCP Tahira Patel - monitors lab work more than once yearly ROS Const Constitutional: Reports as per HPI; Denies fatigue, increased appetite, poor appetite, weight gain or weight loss Cardio Card: Denies chest pain Resp Resp: Denies cough or dyspnea GI GI: Reports as per HPI; Denies abdominal pain, bloating, constipation, nausea or vomiting : Reports as per HPI and other; Denies difficulty voiding, dysuria, hematuria, nipple discharge, pelvic pain, prolapse symptoms, urinary frequency, urinary incontinence, urinary urgency, vaginal discharge, vaginal dryness, vaginal odor or vaginal pruritus Skin Skin/Breast: Denies changing lesions, breast mass, breast pain, breast skin changes or nipple discharge Psych Psych: Denies anxiety or depression Exam Const General: cooperative, healthy appearing, comfortable, no acute distress, well developed and well groomed [facility] Head: normal to inspection and normocephalic Ears: hearing grossly normal bilaterally and external ears normal Nose: external nose normal Face and sinus: normal facial exam Neck Neck: normal visual inspection, full ROM and no lymphadenopathy Thyroid: thyroid normal Chest Chest palpation inspection: normal inspection of the chest Breast inspection: normal inspection of the breasts and normal inspection of the axillae Breast palpation: normal palpation of the breasts, normal palpation of the axillae and no axillary lymphadenopathy Resp Effort Inspection: normal respiratory effort GI Inspection: normal to inspection and non-distended Palpation: soft, no hepatosplenomegaly and no guarding General: bladder normal to palpation External Female Exam: normal external appearance, normal appearance of the urethra and no lesions Urethra: normal appearance of the urethra and normal palpation Speculum Exam - Vagina: normal appearance of the (more content not included)... Normal [facility] CT CARDIAC SCORING WO IV CON TRASTon 01-31-2024 CT CARDIAC SCORING WO IV CONTRAST Interpreted By: Bebo Snyder, STUDY: CT CARDIAC SCORING WO IV CONTRAST; 01/31/2024 5:54 pm INDICATION: Signs/Symptoms:HYPERLI PIDEMIA. COMPARISON: None. ACCESSION NUMBER(S): [id number] ORDERING CLINICIAN: TAHIRA PATEL TECHNIQUE: Using prospective ECG gating, CT scan of the coronary arteries was performed without intravenous contrast. Coronary calcium scoring was performed according to the method of Agatston. FINDINGS: The score and distribution of calcium in the coronary arteries is as follows: LM 0 LAD 0 LCx 0 RCA 0 Total 0 The visualized mid/lower ascending thoracic aorta measures 3.4 cm in diameter. The heart is normal in size. No pericardial effusion is present. No gross evidence of mediastinal or hilar lymphadenopathy or masses is identified. The visualized segments of the lungs are normally expanded. The visualized subdiaphragmatic structures appear intact. IMPRESSION: 1. Coronary artery calcium score of 0*. *Coronary artery calcium scoring may be helpful in predicting the risk for future coronary heart disease events. According to the [employer] Clinical Expert Consensus Task Force, such testing provides important prognostic information in patients with more than one coronary heart disease risk factor. The coronary artery calcium score correlates with the annual risk of a non-fatal myocardial infarction or coronary heart disease . Coronary artery score Annual Risk 0-99 0.4% 100-399 1.3% >400 2.4% These three breakpoints correspond to lower, intermediate and high risk states for future coronary events. Such information should be used, along with appropriate clinical judgment, to make decisions regarding the intensity of risk factor management strategies to treat blood lipids and to modify other non-lipid coronary risk factors. Reference: Windham P et al. Circulation. 2007; 115:402-426 MACRO: None Signed by: Bebo Snyder 02/02/2024 1:46 PM Dictation workstation: [id number] [facility] POC Urinalysis Dipstick,Auto UCon 05-16-2023 Bilirubin Ql (U) Negative Negative [facility] th Clarity, UA Cloudy Abnormal Clear [facility] Color (U) Yellow Yellow, Light Yellow, Dark Yellow [facility] Glucose Ql (U) Negative Normal, Negative mg/dL [facility] Hemoglobin Ql (U) Moderate Abnormal Negative [facility] Interpretation and review of laboratory results Abnormal [facility] Ketones Ql (U) Negative Negative mg/dL [facility] Leukocyte esterase Test strip Ql (U) Small Abnormal Negative [facility] Nitrite Ql (U) Positive Abnormal Negative [facility] pH (U) 5.5 [pH] 5.0 - 7.0 [facility] Protein Ql (U) 30 mg/dL Abnormal Negative [facility] Specific gravity (U) [Rel density] 1.030 Abnormal 1.005 - 1.025 [facility] Urobilinogen Qn (U) 0.2 mg/dL <2.0, 0.2, Normal, Negative, 1.0, 2.0, <1.0 [facility] C-REACT PROT HIGH SENS(hsCRP ) (14289)Ordered By: Chemical Compounder on 05-29-2022 CRP High sensitivity method [Mass/Vol] 9.97 mg/L Abnormal 0.00-3.00 [facility]; [facility] Work Phone: Comment on above: Relative Risk for Fu ture Cardiovascular Event Low <1.00 Average 1.00 - 3.00 High >3.00 PATIENT WAS FASTINGP ERFORMED BY: KAMI CRI TechnologiesColumbus Regional Healthcare System [id number] ESR-F (SED RATE ERYTHROCYTE - FEMALE) ([id number])Ordered By: Chemical Compounder on 05-29-2022 ESR (Bld) [Velocity] 17 mm/h Normal 0-40 [facility]; [facility] Work Phone: Comment on above: PATIENT WAS FASTINGP ERFORMED BY: KAMI StreamStarAtrium Health Pineville [id number] LIPID PANEL ([id number])Ordered B y: Chemical Compounder on 05-29-2022 Cholesterol [Mass/Vol] 174 mg/dL Normal 100-199 [facility]; [facility] Work Phone: Comment on above: PATIENT WAS FASTINGP ERFORMED BY: Profista[address] XitronixColumbus Regional Healthcare System [id number] Cholesterol in HDL [Mass/Vol] 50 mg/dL Normal [facility]; [facility] Work Phone: Comment on above: PATIENT WAS FASTINGP ERFORMED BY: KAMI Kaizen Platform[address] XitronixColumbus Regional Healthcare System [id number] Triglyceride [Mass/Vol] 95 mg/dL Normal 0-149 [facility]; [facility] Work Phone: Comment on above: PATIENT WAS FASTINGP ERFORMED BY: KAMI RedLassonortheast regional medical center Dwkxbo[address] [facility]in [place] [id number] LIPID PANEL (65441) 17 mg/dL Normal 5-40 [facility]; [facility] Work Phone: Comment on above: PATIENT WAS FASTINGP ERFORMED BY: KAMI Labco Rgiucp[address] [facility] [place] [id number] LIPID PANEL (24277) 107 mg/dL Abnormal 0-99 [facility]; [facility] Work Phone: Comment on above: PATIENT WAS FASTINGP ERFORMED BY: KAMI [employer]co Vrklbe9026 [facility] [id number] LIPID PANEL (07211) 2.1 {ratio} Normal 0.0-3.2 [facility]; [facility] Work Phone: Comment on above: LDL/HDL Ratio Men Wo men 1/2 Avg.Risk 1.0 1.5 Avg.Risk 3.6 3.2 2X Avg.Risk 6.2 5.0 3X Avg.Risk 8.0 6.1 PATIENT WAS FASTINGP ERFORMED BY: KAMI Labnortheast regional medical center Ddpgmu9745 [facility] [id number] METABOLIC PANEL, COMPREHENSI VE (49450)Ordered By: Chemical Compounder on 05-29-2022 Albumin [Mass/Vol] 4.1 g/dL Normal 3.8-4.8 [facility]; [facility] Work Phone: Comment on above: PATIENT WAS FASTINGP ERFORMED BY: Labnortheast regional medical center Lnrzvp5223 [facility] [id number] Albumin/Globulin [Mass ratio] 1.6 {ratio} Normal 1.2-2.2 [facility]; [facility] Work Phone: Comment on above: PATIENT WAS FASTINGP ERFORMED BY: Labco Ppurop8252 [facility]in [place] [id number] ALP [Catalytic activity/Vol] 64 U/L Normal 44-121 [facility]; [facility] Work Phone: Comment on above: PATIENT WAS FASTINGP ERFORMED BY: KAMI [employer] Zjrnqw[address] RoadDublin [place] [id number] ALT [Catalytic activity/Vol] 13 U/L Normal 0-32 [facility]; [facility] Work Phone: Comment on above: PATIENT WAS FASTINGP ERFORMED BY: KAMI [employer] Ppnfpp3584 [address] RoadDublin [place] [id number] AST [Catalytic activity/Vol] 24 U/L Normal 0-40 [facility]; [facility] Work Phone: Comment on above: PATIENT WAS FASTINGP ERFORMED BY: KAMI [employer] Yyzpxt6558 [address] RoadDublin [place] [id number] Bilirubin [Mass/Vol] 0.3 mg/dL Normal 0.0-1.2 [facility]; [facility] Work Phone: Comment on above: PATIENT WAS FASTINGP ERFORMED BY: KAMI Labnort[facility] Zgvqox2861 [address] RoadDublin [place] [id number] Calcium [Mass/Vol] 8.9 mg/dL Normal 8.7-10.3 [facility]; [facility] Work Phone: Comment on above: PATIENT WAS FASTINGP ERFORMED BY: KAMI Labnort[facility] regional [facility] Opgwpi0831 [address] RoadDublin [place] [id number] Chloride [Moles/Vol] 102 mmol/L Normal 96-106 [facility]; [facility] Work Phone: Comment on above: PATIENT WAS FASTINGP ERFORMED BY: KAMI Labnort[facility] regional [facility] Ppegnq2610 [address] RoadDublin [place] [id number] CO2 [Moles/Vol] 23 mmol/L Normal 20-29 [facility]; [facility] Work Phone: Comment on above: PATIENT WAS FASTINGP ERFORMED BY: KAMI Labnort[facility] regional medical [facility] Jqqkgy2306 [address] RoadDublin [place] [id number] Creatinine [Mass/Vol] 0.85 mg/dL Normal 0.57-1.00 [facility]; [facility] Work Phone: Comment on above: PATIENT WAS FASTINGP ERFORMED BY: Labnortheast regional [facility] Osalln0115 [address] RoadDublin [place] [id number] GFR/1.73 sq M.predicted among non-blacks MDRD (S/P/Bld) [Vol rate/Area] 77 mL/min/{1.73_m2} Normal Comprehensiv e [facility]; [facility] Work Phone: Comment on above: PATIENT WAS FASTINGP ERFORMED BY: LabSaint Francis Medical CenterWborhc7654 [address] RoadDublin [place] [id number] Globulin (S) [Mass/Vol] 2.5 g/dL Normal 1.5-4.5 [facility]; [facility] Work Phone: Comment on above: PATIENT WAS FASTINGP ERFORMED BY: LabSaint Francis Medical CenterRdkwla2047 [address] RoadDublin [place] [id number] Glucose [Mass/Vol] 98 mg/dL Normal 65-99 [facility]; [facility] Work Phone: Comment on above: PATIENT WAS FASTINGP ERFORMED BY: LabSaint Francis Medical CenterHjhapd5749 Clarke RoadDublin [place] [id number] Potassium [Moles/Vol] 4.3 mmol/L Normal 3.5-5.2 [facility]; [facility] Work Phone: Comment on above: PATIENT WAS FASTINGP ERFORMED BY: LabSaint Francis Medical CenterOmwukz75[address] [facility] City HospitalDublin [place] [id number] Protein [Mass/Vol] 6.6 g/dL Normal 6.0-8.5 [facility]; [facility] Work Phone: Comment on above: PATIENT WAS FASTINGP ERFORMED BY: Labnort[facility] Zhzkql3435 [address] RoadDublin [place] [id number] Sodium [Moles/Vol] 141 mmol/L Normal 134-144 [facility]; [facility] Work Phone: Comment on above: PATIENT WAS FASTINGP ERFORMED BY: Labnort[facility] Ovdeyf3678 [address] RoadDublin [place] [id number] Urea nitrogen [Mass/Vol] 13 mg/dL Normal 8-27 [facility]; [facility] Work Phone: Comment on above: PATIENT WAS FASTINGP ERFORMED BY: KAMI Roylin6370 [facility] [id number] Urea nitrogen/Creatinin e [Mass ratio] 15 mg/mg Normal 12- [facility]; [facility] Work Phone: Comment on above: PATIENT WAS FASTINGP ERFORMED BY: KAMI Montero Odvezf4828 [facility] [id number] CBC, PLATELETS & MANUAL DIFF ([id number])Ordered By: Chemical Compounder on 02-20-2022 Basophils (Bld) [#/Vol] 0.0 10*3/uL Normal 0.0-0.2 [facility]; [facility] Work Phone: Comment on above: PATIENT WAS FASTINGP ERFORMED BY: Juicenortheast regional medical center Vupcis96[address] [id number] Information: NURSE DRAW; wellness / Basophils/100 WBC (Bld) 0 % Normal [facility]; [facility] Work Phone: Comment on above: PATIENT WAS FASTINGP ERFORMED BY: KAMI Montero Cvfenn0549 [facility] [id number] Information: NURSE DRAW; wellness 03/10 Eosinophils (Bld) [#/Vol] 0.1 10*3/uL Normal 0.0-0.4 [facility]; [facility] Work Phone: Comment on above: PATIENT WAS FASTINGP ERFORMED BY: [facility]6370 [facility] [id number] Information: NURSE DRAW; wellness 03/10 Eosinophils/100 WBC (Bld) 1 % Normal [facility]; [facility] Work Phone: Comment on above: PATIENT WAS FASTINGP ERFORMED BY: KAMI Bosenortheast regional medical center Eruwjx9384 [facility] [id number] Information: NURSE DRAW; wellness / Erythrocyte distribution width (RBC) [Ratio] 12.0 % Normal 11.7-15.4 [facility]; [facility] Work Phone: Comment on above: PATIENT WAS FASTINGP ERFORMED BY: KAMI Bosenortheast regional medical center Gmeunb306[address] [id number] Information: NURSE DRAW; wellness 03/10 Hematocrit (Bld) [Volume fraction] 45.2 % Normal 34.0-46.6 [facility]; [facility] Work Phone: Comment on above: PATIENT WAS FASTINGP ERFORMED BY: [address] [id number] Information: NURSE DRAW; wellness 03/10 Hemoglobin (Bld) [Mass/Vol] 14.2 g/dL Normal 11.1-15.9 [facility]; [facility] Work Phone: Comment on above: PATIENT WAS FASTINGP ERFORMED BY: [address] [id number] Information: NURSE DRAW; wellness 03/10 Immature granulocytes (Bld) [#/Vol] 0.0 10*3/uL Normal 0.0-0.1 [facility]; [facility] Work Phone: Comment on above: PATIENT WAS FASTINGP ERFORMED BY: Juice[address] [id number] Information: NURSE DRAW; wellness / Immature granulocytes/100 WBC (Bld) 0 % Normal [facility]; [facility] Work Phone: Comment on above: PATIENT WAS FASTINGP ERFORMED BY: [address] [id number] Information: NURSE DRAW; wellness 6/ Lymphocytes (Bld) [#/Vol] 1.4 10*3/uL Normal 0.7-3.1 [facility]; [facility] Work Phone: Comment on above: PATIENT WAS FASTINGP ERFORMED BY: [address] [id number] Information: NURSE DRAW; wellness 6/ Lymphocytes/100 WBC (Bld) 28 % Normal [facility]; [facility] Work Phone: Comment on above: PATIENT WAS FASTINGP ERFORMED BY: KAMI Juicejoaquín Dlxpkp6324 [facility] [id number] Information: NURSE DRAW; wellness 03/10 MCH (RBC) [Entitic mass] 30.2 pg Normal 26.6-33.0 [facility]; [facility] Work Phone: Comment on above: PATIENT WAS FASTINGP ERFORMED BY: KAMI [address] [id number] Information: NURSE DRAW; wellness 03/10 MCHC (RBC) [Mass/Vol] 31.4 g/dL Abnormal 31.5-35.7 [facility]; [facility] Work Phone: Comment on above: PATIENT WAS FASTINGP ERFORMED BY: KAMI [address] [id number] Information: NURSE DRAW; wellness 03/10 MCV (RBC) [Entitic vol] 96 fL Normal 79-97 [facility]; [facility] Work Phone: Comment on above: PATIENT WAS FASTINGP ERFORMED BY: KAMI Juice[address] [id number] Information: NURSE DRAW; wellness 03/10 Monocytes (Bld) [#/Vol] 0.3 10*3/uL Normal 0.1-0.9 [facility]; [facility] Work Phone: Comment on above: PATIENT WAS FASTINGP ERFORMED BY: [address] [id number] Information: NURSE DRAW; wellness 03/10 Monocytes/100 WBC (Bld) 6 % Normal [facility]; [facility] Work Phone: Comment on above: PATIENT WAS FASTINGP ERFORMED BY: KAMI [place] 8184770 [facility] [id number] Information: NURSE DRAW; wellness 03/10 Neutrophils (Bld) [#/Vol] 3.1 10*3/uL Normal 1.4-7.0 [facility]; [facility] Work Phone: Comment on above: PATIENT WAS FASTINGP ERFORMED BY: KAMI Winstonshahla Rnzavo3138 [facility] [id number] Information: NURSE DRAW; wellness 03/10 Neutrophils/100 WBC (Bld) 65 % Normal [facility]; [facility] Work Phone: Comment on above: PATIENT WAS FASTINGP ERFORMED BY: KAMI [place] Sqmccm[address] [id number] Information: NURSE DRAW; wellness 03/10 Platelets (Bld) [#/Vol] 310 10*3/uL Normal 150-450 [facility]; [facility] Work Phone: Comment on above: PATIENT WAS FASTINGP ERFORMED BY: KAMI Juice[address] [id number] Information: NURSE DRAW; wellness 03/10 RBC (Bld) [#/Vol] 4.70 10*6/uL Normal 3.77-5.28 [facility]; [facility] Work Phone: Comment on above: PATIENT WAS FASTINGP ERFORMED BY: KAMI Winstonshahla Qhqkcr11[address] [id number] Information: NURSE DRAW; wellness 03/10 WBC (Bld) [#/Vol] 4.9 10*3/uL Normal 3.4-10.8 [facility]; [facility] Work Phone: Comment on above: PATIENT WAS FASTINGP ERFORMED BY: KAMI Juice[address] [id number] Information: NURSE DRAW; wellness 03/10 METABOLIC PANEL, COMPREHENSI VE ([id number])Ordered By: Chemical Compounder on 02-20-2022 Albumin [Mass/Vol] 4.7 g/dL Normal 3.8-4.8 [facility]; [facility] Work Phone: Comment on above: PATIENT WAS FASTINGP ERFORMED BY: KAMI JuicecoGregory Ville 5435370 [address] RoadDublin [place] [id number] Albumin/Globulin [Mass ratio] 1.8 {ratio} Normal 1.2-2.2 [facility]; [facility] Work Phone: Comment on above: PATIENT WAS FASTINGP ERFORMED BY: KAMI Roylin6370 [address] RoadDublin [place] [id number] ALP [Catalytic activity/Vol] 75 U/L Normal 44-121 [facility]; [facility] Work Phone: Comment on above: PATIENT WAS FASTINGP ERFORMED BY: KAMI [facility] [id number] Clarke RoadDublin [place] [id number] ALT [Catalytic activity/Vol] 14 U/L Normal 0-32 [facility] Work Phone: Comment on above: PATIENT WAS FASTINGP ERFORMED BY: KAMI [facility] [id number] Clarke RoadDublin [place] [id number] AST [Catalytic activity/Vol] 17 U/L Normal 0-40 [facility]; [facility] Work Phone: Comment on above: PATIENT WAS FASTINGP ERFORMED BY: KAMI [facility] [id number] Clarke RoadDublin [place] [id number] Bilirubin [Mass/Vol] 0.4 mg/dL Normal 0.0-1.2 [facility]; [facility] Work Phone: Comment on above: PATIENT WAS FASTINGP ERFORMED BY: KAMI [facility] Dwonou2196 Clarke RoadDublin [place] [id number] Calcium [Mass/Vol] 9.6 mg/dL Normal 8.7-10.3 [facility] Internal Medicine; [facility] Work Phone: Comment on above: PATIENT WAS FASTINGP ERFORMED BY: CB [facility] [id number] Clarke RoadDublin [place] [id number] Chloride [Moles/Vol] 102 mmol/L Normal 96-106 [facility]; [facility] Work Phone: Comment on above: PATIENT WAS FASTINGP ERFORMED BY: CB [facility] [id number] RoadDublin [place] [id number] CO2 [Moles/Vol] 25 mmol/L Normal 20-29 [facility]; [facility] Work Phone: Comment on above: PATIENT WAS FASTINGP ERFORMED BY: [facility] [id number] [facility] [place] [id number] Creatinine [Mass/Vol] 0.80 mg/dL Normal 0.57-1.00 [facility]; [facility] Work Phone: Comment on above: PATIENT WAS FASTINGP ERFORMED BY: [facility] [id number] [facility] [id number] GFR/1.73 sq M.predicted among non-blacks MDRD (S/P/Bld) [Vol rate/Area] 83 mL/min/{1.73_m2} Normal Comprehensiv e Internal Medicine; [facility] Work Phone: Comment on above: PATIENT WAS FASTINGP ERFORMED BY: [facility]University [facility]6370 [facility] [id number] Globulin (S) [Mass/Vol] 2.6 g/dL Normal 1.5-4.5 [facility]; [facility] Work Phone: Comment on above: PATIENT WAS FASTINGP ERFORMED BY: [facility] Ksoiqx2044 [facility] [place] [id number] Glucose [Mass/Vol] 90 mg/dL Normal 65-99 [facility] Internal [facility]; [facility] Work Phone: Comment on above: PATIENT WAS FASTINGP ERFORMED BY: [facility] Uxsvwt[address] [facility]in [place] [id number] Potassium [Moles/Vol] 4.5 mmol/L Normal 3.5-5.2 [facility]; [facility] Work Phone: Comment on above: PATIENT WAS FASTINGP ERFORMED BY: [facility] Tijdmu88[address] [facility] [place] [id number] Protein [Mass/Vol] 7.3 g/dL Normal 6.0-8.5 Compre hensive Internal Medicine; [facility] Work Phone: Comment on above: PATIENT WAS FASTINGP ERFORMED BY: [facility] Zelpin38[address] [facility] [id number] Sodium [Moles/Vol] 141 mmol/L Normal 134-144 [facility] Internal Medicine; [facility] Work Phone: Comment on above: PATIENT WAS FASTINGP ERFORMED BY: [facility] Rsgana5519 [facility] [id number] Urea nitrogen [Mass/Vol] 18 mg/dL Normal 8-27 [facility]; [facility] Work Phone: Comment on above: PATIENT WAS FASTINGP ERFORMED BY: [facility] Ocracz2479 [facility] [id number] Urea nitrogen/Creatinin e [Mass ratio] 23 mg/mg Normal 12-28 [facility]; [facility] Work Phone: Comment on above: PATIENT WAS FASTINGP ERFORMED BY: [facility] [id number] [facility] [id number] CBCon 01-28-2022 Hematocrit (Bld) [Volume fraction] 43.8 % 35.0 - 47.0 % [facility] Hemoglobin.gastroi ntestinal spec 1 Ql (Stl) 14.7 g/dL 11.7 - 16.0 g/dL [facility] MCH (RBC) [Entitic mass] 31.1 pg 26.0 - 34.0 pg [facility] MCHC (RBC) [Mass/Vol] 33.5 % 32.0 - 36.0 % [facility] MCV (RBC) [Entitic vol] 93.0 fL 79.0 - 98.0 fL [facility] Platelet distribution width (Bld) [Ratio] 13.4 % 11.5 - 14.5 % [facility] Platelet mean volume (Bld) [Entitic vol] 8.0 fL 7.4 - 12.4 fL [facility] Comment on above: MPV is a calculated measurement using platelet volume ratio. Platelets (Bld) [#/Vol] 232 10*3/uL 140 - 440 10*3/uL [facility] RBC (Bld) [#/Vol] 4.71 10*6/uL 3.80 - 5.2 0 10*6/uL [facility] WBC (Bld) [#/Vol] 5.2 10*3/uL 3.6 - 10.7 10*3/uL [facility] Test Performed by [facility], [address] [place] [id number] [facility] Hemogramon 01-28-2022 Erythrocyte distribution width (RBC) [Ratio] 13.4 % Normal 11.5-14.5 [facility] Comment on above: Performed By: #### H EMOG #### [address] [address] Hematocrit (Bld) [Volume fraction] 43.8 % Normal 35.0-47.0 [facility] Comment on above: Performed By: #### H EMOG #### [address] [address] Hemoglobin (Bld) [Mass/Vol] 14.7 g/dL Normal 11.7-16.0 [facility] Comment on above: Performed By: #### H EMOG #### [address] [address] MCH (RBC) [Entitic mass] 31.1 pg Normal 26.0-34.0 [facility] Comment on above: Performed By: #### H EMOG #### [address] [address] MCHC 33.5 % Normal 32.0-36.0 [facility] Comment on above: Performed By: #### H EMOG #### [address] [address] MCV (RBC) [Entitic vol] 93.0 fL Normal 79.0-98.0 [facility] Comment on above: Performed By: #### H EMOG #### [address] [address] Platelet mean volume (Bld) [Entitic vol] 8.0 fL Normal 7.4-12.4 [facility] Comment on above: Result Comment: MPV is a calculated measurement using platelet volume ratio. Performed By: #### H EMOG #### [facility] [address] [place] [address] Platelets (Bld) [#/Vol] 232 10*3/uL Normal 140-440 [facility] Comment on above: Performed By: #### H EMOG #### [facility] [address] [place] [address] RBC (Bld) [#/Vol] 4.71 10*6/uL Normal 3.80-5.20 [facility] Comment on above: Performed By: #### H EMOG #### [facility] [address] [place] [address] WBC (Bld) [#/Vol] 5.2 10*3/uL Normal 3.6-10.7 [facility] Comment on above: Performed By: #### H EMOG #### [facility] [address] [place] [address] OPERATIVE REPORTon 2 Ordered by an unspecified provider. [facility] Op Noteon 01-28-2022 Op Note PATIENT: REGINA ALAMO ADMISSION DATE: 01/28/2022 SURGERY DATE: 01/28/2022 DATE OF : 1960 AGE: 61 ADMITTING PHYSICIAN: Ab Oates MD ATTENDING PHYSICIAN: Ab Oates MD DICTATING PHYSICIAN: Ab Oates MD OPERATIVE RECORD Procedure: ROBOTIC HYSTERECTOMY WITH BSO. Preoperative Diagnosis: Pelvic mass. Postoperative Diagnosis: Uterine leiomyoma. Anesthesia: General. Description of Procedure: The patient was identified and brought to the operating room. After administration of general anesthesia, underwent abdominoperineal and vaginal prep and drape. A Hu catheter was inserted. Compression stockings on and running. Time-out was performed and manipulator was placed in the uterus with a YAQUELIN ring around the cervix. Exam under anesthesia had revealed what appeared to be uterine mass. She was draped in a low lithotomy position with the legs being carefully placed to avoid any nerve injury. Compression stockings on and running. Using a knife, a small incision was made in the umbilicus and using the direct technique, a non-bladed trocar was inserted atraumatically in the abdominal cavity. The abdomen was insufflated with CO2 and under direct vision, 2 blunt da Vini ports were placed in right and left lower quadrants, both under direct vision. A 5 mm blunt auction assistant port was placed in the right upper quadrant. Trendelenburg was used to displace the bowel up out of the pelvis and intra-abdominal exploration was completely normal. Right and left round ligaments were coagulated and divided. The anterior and posterior leaves of the broad ligament opened. The ureter was identified. The ovarian vessels were skeletonized above the ureters, coagulated with bipolar cautery and divided. The bladder was dissected inferiorly allowing the uterine vessels to be skeletonized, coagulated, and divided as were the upper cardinal ligaments down the top of the YAQUELIN ring. A 360-degree colpotomy incision was then made and the uterus, cervix, tubes, and ovaries removed out through the vagina. The cuff was then closed using a running 0 V-Loc suture. The uterus was inspected off the field and appeared to be benign leiomyoma. The abdomen was irrigated. Hemostasis was noted. All incisions were removed from the abdominal cavity. The da Vini was undocked, the trocars removed, and the defects in the skin were closed with subcuticular 4-0 Monocryl and Dermabond. The Hu was removed with 800 cc of clear urine. A small perineal laceration was repaired using 3-0 chromic. Blood loss was minimal. She was taken to the recovery room in stable condition. cc: Dora Mcintyre M.D., [facility] Job ID: [id number] Ab Oates MD DOD:01/28/2022 03:36 P /ariana DOT:01/28/2022 04:38 P Job Number: [id number] Document Number: [id number] cc: Ab Oates MD [facility] [address] [facility] [address] Tahira A * Fast, DO winter [facility] [address] Normal [facility] ELI STUDIO 3on 2 [facility] Work Phone: Radiology Study observation (narrative) [facility] Work Phone: Surgical Pathologyon 022 Surgical Pathology [id number] [facility] PATHOLOGY AND LABORATORY MEDICINE [address] [place] [address] FINAL SURGICAL PATHOLOGY REPORT NAME: REGINA ALAMO : 1960 61 Y F BILLING NO.: [id number] LOCATION: [place] [address] PROCEDURE 01/28/2022 DATE: SURGEON: AB OATES MD RECEIVED 01/28/2022 DATE: ATTENDING: AB OATES MD REPORT DATE: 02/02/2022 COPIES TO: DIAGNOSIS: UTERUS AND BILATERAL ADNEXA, HYSTERECTOMY AND BILATERAL SALPINGO-OOPHORECTOMY - UTERUS (181 G) WITH INACTIVE ENDOMETRIUM, LEIOMYOMA, AND UNREMARKABLE CERVIX. BILATERAL UNREMARKABLE FALLOPIAN TUBES AND OVARIES. CRH/CRH Signature> DUDLEY COOK M.D. CLINICAL INFORMATION: Pelvic mass. SPECIMEN: UTERUS, WITH/WITHOUT TUBES AND OVARIES GROSS DESCRIPTION: Received in formalin labeled uterus, cervix, bilateral fallopian tubes and ovaries is a heavily distorted uterus with attached cervix and bilateral fallopian tube and ovaries. Attached to the lower uterine segment is a large mass. The uterus with attached cervix measures 9 x 5 x 3 cm and the mass measures 6 x 4 x 5 cm. The uterus with attached cervix and mass weighs 181 g. The serosa is pink-bean and mildly wrinkled. The cervix is pink to choe-bean and has a slit-like os that measures approximately 1.5 cm. Bisecting the specimen reveals a pink-bean cut surface with no grossly identifiable lesions besides the large mass that appears to be white-bean whorled mass. Endocervical canal measures approximately 1 cm and the endometrial cavity measures 3.5 x 2 cm. Endometrial thickness is approximately 0.2 cm and the myometrial thickness is approximately 1 cm. The left fallopian tube measures 6 x 0.4 cm and has free fimbriae at the distal end. The left ovary is yellow to pink-bean, measures 3 x 1.5 x 0.5 cm, and weighs 5 g. Sections of the left fallopian tube and left ovary are unremarkable. The right fallopian tube measures 6 x 0.5 cm and has free fimbriae at the distal end. Sections of the right fallopian tube show an unremarkable lumen. The right ovary is pink to yellow-bean, measures 3 x 1.2 x 0.5 cm and weighs 3 g. Sections of the right ovary are unremarkable. Manager [employer] sections are submitted in 16 cassettes. Cassette summary: Cassette 1- posterior cervix; Cassette 2- posterior endomyometrium; Cassette 3- anterior cervix; Cassette 4- anterior endomyometrium; Cassettes 5 through 12 are sections of the large white-bean lesion; Cassette 13- left fallopian tube; Cassette 14- left ovary; Cassette 15- right fallopian tube; Cassette 16- right ovary. CJPT/CRH Disclaimer: The following statement applies to all immunohistochemistry, in situ hybridization, molecular studies, and immunofluorescence testing. The use of one or more reagents in the above tests is regulated as an analyte specific reagent (ASR). These tests were developed and their performance characteristics determined by the clinical laboratories of [facility]. They have not been cleared by the US Food and Drug Administration (FDA). The FDA has determined that such clearance or approval is not necessary. All the above immunostains were performed on paraffin embedded tissue. Appropriate positive and negative controls (where applicable) were run in parallel with the patient's specimen; these controls showed expected staining pattern, with acceptable intensity of staining. Immunohistochemical assays have not been validated on decalcified tissues. Results should be interpreted with caution given the raised possibility of false negativity on decalcified specimens. Professional Performing Location: [place] [address] [place] [address]. DEPARTMENT OF PATHOLOGY AND LABORATORY MEDICINE [place], [place] [address] [email or web address] Normal [facility] TS GELon 01-28-2022 TS GEL ABO Group: AB Rh, Gel: POS Antibody Screen Gel: NEG Normal [facility] Comment on above: Performed By: #### T SGL #### [facility] TYPE AND SCREENon 01-28-2022 ABO Grouping AB [facility] Rh Type Positive [facility] Test Performed by [facility], [address] [place] [id number] [place] [address] LAB [facility] POC URINALYSIS, AUTO [place] URGE NT CAREOrdered By: Sabino Bermudez on 04-14-2021 Bilirubin Ql (U) Negative Negative [facility] Clarity, UA Slightly Cloudy Abnormal Clear [facility] Color (U) Yellow Yellow, Light Yellow, Dark Yellow [facility] Glucose Ql (U) Negative Normal, Negative mg/dL [facility] Hemoglobin Ql (U) Moderate Abnormal Negative [facility] Interpretation and review of laboratory results Abnormal [facility] Ketones Ql (U) Negative Negative mg/dL [facility] Leukocyte esterase Test strip Ql (U) Large Abnormal Negative [facility] Nitrite Ql (U) Positive Abnormal Negative [facility] pH (U) 8.0 [pH] Abnormal [facility] Protein Ql (U) 100 Abnormal Negative mg/dL [facility] Specific gravity (U) [Rel density] 1.020 Abnormal [facility] Urobilinogen Qn (U) 1.0 mg/dL <2.0, 0.2, Normal, Negative, 1.0, 2.0, <1.0 [facility] Micro[facility]: Culture, Urine on 05-06-2017 CUUR Urine CultureCulture exhibits no growth. [facility] GE use only - for LinkLogic import when terms are not otherwise specified Urine CultureCulture exhibits no growth. Invalid Interpretation Code [facility] Office Visit: est annualon 0 05-03-2017 Documentation of current medications (procedure) Done Invalid Interpretation Code [facility] Fall risk assessment No [facility] Hemoglobin presence in stool not done [facility] Protein mass conc Done [facility] Tobacco smoking status NHIS Never [facility] Tobacco smoking status [facility] Never smoker [facility] Tobacco use [facility] Never smoker Invalid Interpretation Code [facility] Replaced Document: Culture, Genital Comprehensiveon 04-25-2017 CUV Neisseria or beta-hemolytic Streptococcus isolated. [facility] Work Phone: GE use only - for LinkLogic import when terms are not otherwise specified Neisseria or beta-hemolytic Streptococcus isolated. Invalid Interpretation Code [facility] Microbiology: (P) Culture, U rineon 04-23-2017 GE use only - for LinkLogic import when terms are not otherwise specified . Invalid Interpretation Code [facility] Work Phone: Microbiology: (P) Culture, G enital Comprehensiveon 04-22-2017 GE use only - for LinkLogic import when terms are not otherwise specified . Invalid Interpretation Code [facility] Office Visit: Recurrent uti, still having pain after cirpoon 04-21-2017 Albumin Ql (U) Negative [facility] Appearance Nom (U) cloudy [facility] Bilirubin Ql (U) Negative [facility] blood in urine (hemoglobin) by dipstick Negative Invalid Interpretation Code [facility] Color Nom (U) yellow [facility] Documentation of current medications (procedure) Done Invalid Interpretation Code [facility] Fall risk assessment No [facility] Glucose Test strip mass conc (U) Negative [facility] Ketones mass conc (U) Negative [facility] Leukocyte esterase Test strip Ql (U) Negative [facility] Nitrite Ql (U) Negative [facility] pH (U) 6.0 [pH] [facility] Protein mass conc Done [facility] Specific gravity Refractometry Relative Density (U) 1.010 [facility] Tobacco smoking status MDIS Never [facility] Tobacco smoking status MDIS Never smoker [facility] Tobacco use [facility] Never smoker Invalid Interpretation Code [facility] Urine, bilirubin presence Negative Invalid Interpretation Code [facility] Urine, glucose presence Negative Invalid Interpretation Code [facility] Urine, ketones presence Negative Invalid Interpretation Code [facility] Urine, nitrite presence Negative Invalid Interpretation Code [facility] Urine, pH 6.0 [pH] Invalid Interpretation Code [facility] Urine, protein Negative Invalid Interpretation Code [facility] Urobilinogen Test strip Ql (U) Negative [facility] Microbiology: Culture, Urine on 04-04-2017 CUUR Trimethoprim/Sulfame th o $ <=20 S [facility] GE use only - for LinkLogic import when terms are not otherwise specified Trimethoprim/Sulfameth o $ <=20 S Invalid Interpretation Code [facility] Work Phone: Office Visit: ution 04-02-20 17 blood in urine (hemoglobin) by dipstick 3+ Invalid Interpretation Code [facility] Documentation of current medications (procedure) Done Invalid Interpretation Code [facility] Fall risk assessment No Invalid Interpretation Code [facility] specific gravity, urine 1.010 Invalid Interpretation Code [facility] Tobacco smoking status NHIS Never Invalid Interpretation Code [facility] Tobacco use [facility] Never smoker Invalid Interpretation Code [facility] Urine, appearance cloudy Invalid Interpretation Code [facility] Urine, bilirubin presence Negative Invalid Interpretation Code [facility] Urine, color yellow Invalid Interpretation Code [facility] Urine, glucose presence Negative Invalid Interpretation Code [facility] Urine, ketones presence Negative Invalid Interpretation Code [facility] Urine, leukocyte esterase presence 3+ Invalid Interpretation Code [facility] Urine, nitrite presence Positive Invalid Interpretation Code [facility] Urine, pH 7.0 [pH] Invalid Interpretation Code [facility] Urine, protein Albumin [Presence] i n Urine Invalid Interpretation Code [facility] Lab Report: (P) Urinalysis, Completeon 01-07-2017 Nitrite Urine Positive High Negative [facility] Occult Blood, urine 250 High Negative [facility] OCCULT BLOOD-UR 250 High Negative [facility] Urine, clarity Cloudy Clear [facility] Urine, glucose presence Normal mg/dl Normal [facility] urobilinogen, urine, by dipstick 8 mg/dL High Normal [facility] Lab Report: Urinalysis, Comp leteon 01-07-2017 Bacteria LM.HPF #/area (Urine sed) 3+ /hpf None Seen [facility] Mucus Ql (Urine sed) 0 SEEN [facility] Urine, bacteria in sediment 3 /[HPF] Invalid Interpretation Code None Seen [facility] Urine, epithelial cells in sediment 0-5 SEEN 5-10 [facility] Urine, erythrocytes in sediment by volume 25-50 SEEN 0-5 [facility] Urine, mucus presence in sediment 0 SEEN Invalid Interpretation Code [facility] WBC #/vol (Bld) 50-100 SEEN 0-5 [facility] ton [facility] WBC (Leukocytes) 50-100 SEEN Invalid Interpretation Code 0-5 [facility] Office Visit: UC: UTIon 12-12 Urine, urobilinogen presence Negative Invalid Interpretation Code [facility] Office Visit: est annualon 1 Breast Mammogram screening Normal Bilateral [facility] Office Visit: est annualon 1 General categories [Interpretation] of Cervical or vaginal smear or scraping by Cyto stain Normal [facility] Vital Signs Date Time Vital Sign Value Performing Clinician Facility 01-23-2025 10:49-0400 Body height 162.[address] Tahira Patel DO Work Phone: [facility] 08-21-2024 10:44-0500 Body height 162.6 cm Helen Grant DO Work Phone: [facility] 08-21-2024 10:44-0500 Body mass index (BMI) [Ratio] 26.09 kg/m2 Helen Rudy DO Work Phone: [facility] 08-21-2024 10:44-0500 Body temperature 97.81 [degF] Helen Ceballosgett DO Work Phone: [facility] 08-21-2024 10:44-0500 Body weight 68.95 kg Helen Ceballosgett DO Work Phone: [facility] 08-21-2024 10:44-0500 Diastolic blood pressure 76 mm[Hg] Helen Ceballosgett DO Work Phone: [facility] 08-21-2024 10:44-0500 Heart rate 50 /min Helen Ceballosgett DO Work Phone: [facility] 08-21-2024 10:44-0500 Respiratory rate 16 /min Helen Ceballosgett DO Work Phone: [facility] 08-21-2024 10:44-0500 SaO2% (BldA) [Mass fraction] 96 % Helen Ceballosgett DO Work Phone: [facility] 08-21-2024 10:44-0500 Systolic blood pressure 113 mm[Hg] Helen Ceballosgett DO Work Phone: [facility] 05-16-2023 13:02-0400 Body temperature 97.5 [degF] Rosalie Michelle COMMUNITY HE[employer] PROGRAM COORDINATOR Work Phone: [facility] 05-16-2023 13:02-0400 Body weight 68.95 kg Rosalie Michelle COMMUNITY HEALTH PROGRAM COORDINATOR Work Phone: [facility] 05-16-2023 13:02-0400 Diastolic blood pressure 70 mm[Hg] Rosalie Michelle COMMUNITY HEALTH PROGRAM COORDINATOR Work Phone: [facility] 05-16-2023 13:02-0400 Heart rate 74 /min Rosalie Michelle COMMUNITY HEALTH PROGRAM COORDINATOR Work Phone: [facility] 05-16-2023 13:02-0400 Respiratory rate 16 /min Rosalie Michelle COMMUNITY HEALTH PROGRAM COORDINATOR Work Phone: [facility] 05-16-2023 13:02-0400 SaO2% (BldA) [Mass fraction] 98 % Rosalie Michelle COMMUNITY HE[employer] PROGRAM COORDINATOR Work Phone: [facility] 05-16-2023 13:02-0400 Systolic blood pressure 102 mm[Hg] Rosalie Michelle COMMUNITY HEALTH PROGRAM COORDINATOR Work Phone: [facility] 06-03-2022 10:01-0400 Body height 162.[address] [facility]; [facility] Work Phone: 06-03-2022 10:01-0400 Body mass index (BMI) [Ratio] 26.63 kg/m2 [facility]; [facility] Work Phone: 06-03-2022 10:01-0400 Body surface area Derived from formula 1.76 m2 [facility]; [facility] Work Phone: 06-03-2022 10:01-0400 Body temperature 98.6 [degF] [facility]; [facility] Work Phone: Comment on above: Method: Thermal Scan 06-03-2022 10:01-0400 Body weight 70.36 kg [facility]; [facility] Work Phone: 06-03-2022 10:01-0400 Diastolic blood pressure 68 mm[Hg] [facility]; [facility] Work Phone: Comment on above: Patient Position: Sitting; Cuff Location : Left Arm; Cuff Size: Standard 06-03-2022 10:01-0400 Heart rate 63 /min [facility]; [facility] Work Phone: Comment on above: Pattern: Regular 06-03-2022 10:01-0400 Respiratory rate 16 /min [facility]; [facility] Work Phone: Comment on above: Pattern: Unlabored 06-03-2022 10:01-0400 Systolic blood pressure 110 mm[Hg] [facility]; [facility] Work Phone: Comment on above: Patient Position: Sitting; Cuff Location : Left Arm; Cuff Size: Standard 03-10-2022 08:34-0400 Body height 162.56 cm Jing Del Rosario [facility]; [facility] Work Phone: 03-10-2022 08:34-0400 Body mass index (BMI) [Ratio] 26.86 kg/m2 Jing Del Rosario [facility]; [facility] Work Phone: 03-10-2022 08:34-0400 Body surface area Derived from formula 1.76 m2 Jing Del Rosario [facility]; [facility] Work Phone: 03-10-2022 08:34-0400 Body temperature 97 [degF] Jing Del Rosario [facility]; [facility] Work Phone: Comment on above: Method: Thermal Scan 03-10-2022 08:34-0400 Body weight 70.99 kg Jing Del Rosario [facility]; [facility] Work Phone: 03-10-2022 08:34-0400 Diastolic blood pressure 64 mm[Hg] Jing Del Rosario [facility]; [facility] Work Phone: Comment on above: Patient Position: Sitting; Cuff Location : Left Arm; Cuff Size: Standard 03-10-2022 08:34-0400 Heart rate 60 /min Jing Del Rosario [facility]; [facility] Work Phone: Comment on above: Pattern: Regular 03-10-2022 08:34-0400 Respiratory rate 16 /min Jing Del Rosario [facility]; [facility] Work Phone: Comment on above: Pattern: Unlabored 03-10-2022 08:34-0400 Systolic blood pressure 100 mm[Hg] Jing Del Rosario [facility]; [facility] Work Phone: Comment on above: Patient Position: Sitting; Cuff Location : Left Arm; Cuff Size: Standard 01-28-2022 15:15-0400 Heart rate 75 /min Ab Oates MD Work Phone: [facility] 01-28-2022 15:15-0400 Respiratory rate 14 /min Ab Oates MD Work Phone: [facility] 01-28-2022 15:00-0400 Diastolic blood pressure 68 mm[Hg] Ab Oates MD Work Phone: [facility] 01-28-2022 15:00-0400 SaO2% (BldA) [Mass fraction] 100 % bA Oates MD Work Phone: [facility] 01-28-2022 15:00-0400 Systolic blood pressure 100 mm[Hg] Ab Oates MD Work Phone: [facility] 01-28-2022 13:15-0400 Body temperature 97.2 [degF] Ab Oates MD Work Phone: [facility] 01-28-2022 09:48-0400 Body height 162.6 cm Ab Oates MD Work Phone: [facility] 01-28-2022 09:48-0400 Body mass index (BMI) [Ratio] 26.78 kg/m2 Ab Oates MD Work Phone: [facility] 01-28-2022 09:48-0400 Body weight 70.76 kg Ab Oates MD Work Phone: [facility] 04-14-2021 15:53-0400 Body temperature 98.1 [degF] Sabino Bermudez DO Work Phone: [facility] 04-14-2021 15:53-0400 Body weight 71.67 kg Sabino Bermudez DO Work Phone: [facility] 04-14-2021 15:53-0400 Diastolic blood pressure 77 mm[Hg] Sabino Bermudez DO Work Phone: [facility] 04-14-2021 15:53-0400 Heart rate 62 /min Sabino Bermudez DO Work Phone: [facility] 04-14-2021 15:53-0400 Respiratory rate 14 /min Sabino Bermudez DO Work Phone: [facility] 04-14-2021 15:53-0400 SaO2% (BldA) [Mass fraction] 97 % Sabino Bermudez DO Work Phone: [facility] 04-14-2021 15:53-0400 Systolic blood pressure 117 mm[Hg] Sabino Bermudez DO Work Phone: [facility] 05-03-2017 09:03-0400 BMI (Body Mass Index) 27.05 kg/m2 Dora Mcintyre MD [facility] 05-03-2017 09:03-0400 Body Temperature 95.9 [degF] Dora Mcintyre MD [facility] 05-03-2017 09:03-0400 BP Diastolic 74 mm[Hg] Dora Mcintyre MD [facility] 05-03-2017 09:03-0400 BP Systolic 113 mm[Hg] Dora Mcintyre MD [facility] 05-03-2017 09:03-0400 Height 162.56 cm Dora Mcintyre MD [facility] 05-03-2017 09:03-0400 Pulse (Heart Rate) 63 /min Dora Mcintyre MD [facility] 05-03-2017 09:03-0400 Respiratory Rate 16 /min D[facility] Mcin[facility] 05-03-2017 09:03-0400 Weight 71.49 kg Dora Mcintyre MD [facility] 04-21-2017 10:16-0400 BMI (Body Mass Index) 26.64 kg/m2 Juliana Ruggiero NP [facility] 04-21-2017 10:16-0400 Body Temperature 97.1 [degF] Juliana Ruggiero SHREDDING SPECIALIST [facility] 04-21-2017 10:16-0400 Body Temperature 97.11 [degF] Juliana Ruggiero SHREDDING SPECIALIST [facility] 04-21-2017 10:16-0400 BP Diastolic 74 mm[Hg] Juliana Ruggiero SHREDDING SPECIALIST [facility] 04-21-2017 10:16-0400 BP Systolic 110 mm[Hg] Juliana Ruggiero SHREDDING SPECIALIST [facility] 04-21-2017 10:16-0400 Height 162.56 cm Juliana Ruggiero SHREDDING SPECIALIST [facility] 04-21-2017 10:16-0400 Respiratory Rate 16 /min Juliana Ruggiero SHREDDING SPECIALIST [facility] 04-21-2017 10:16-0400 Weight 70.4 kg Juliana Ruggiero SHREDDING SPECIALIST [facility] 04-02-2017 10:34-0400 BMI (Body Mass Index) 26.43 kg/m2 Dora Mcintyre MD [facility] 04-02-2017 10:34-0400 Body Temperature 98.1 [degF] Dora Mcintyre MD [facility] 04-02-2017 10:34-0400 BP Diastolic 75 mm[Hg] Dora Mcintyre MD [facility] 04-02-2017 10:34-0400 BP Systolic 108 mm[Hg] Dora Mcintyre MD [facility] 04-02-2017 10:34-0400 Height 162.56 cm Dora Mcintyre MD [facility] 04-02-2017 10:34-0400 Pulse (Heart Rate) 74 /min Dora Mcintyre MD [facility] 04-02-2017 10:34-0400 Respiratory Rate 17 /min Dora Mcintyre MD [facility] 04-02-2017 10:34-0400 Weight 69.85 kg Dora Mcintyre MD [facility] Encounters Encounter Date Encounter Type Care Provider Facility Start: 03-09-2025 ambulatory Tahira Patel Facility:[facility] Start: 01-23-2025 End: 01-23-[address] Giovanny Hennessy MD [facility] Start: 01-23-2025 End: 01-23-[address] Tahira Patel DO Work Phone: [facility] Work Phone: Start: 09-12-2024 End: 09-12-2024 ambulatory Aure Bush Facility:[facility] Start: 08-21-2024 End: 08-21-2024 Office outpatient new 30 minutes Helen Grant DO Work Phone: [facility] Eye Pre admision Testing Comment on above: Pre-operative examin ation (Primary Dx); Vitreous hemorrhage of left eye (HCC); Hyperlipidemia, unspecified hyperlipidemia type Start: 08-21-2024 End: 08-21-2024 Preprocedural examination done Helen Grant DO Work Phone: [facility] Work Phone: Start: 08-21-2024 End: 08-21-2024 ambulatory TYLER SILVA BAUTISTA [facility] Start: 08-21-2024 End: 08-21-2024 Encounter for other preprocedural examination HELENDEQUAN CEBALLOSGETT [facility] Start: 08-02-2024 End: 08-02-2024 ambulatory Dora Mcintyre Facility:[facility] Start: 06-07-2024 Encounter for gynecological examination (general) (routine) without abnormal findings Dora Mcintyre [facility] Start: 06-07-2024 End: 06-07-2024 ambulatory Dora Mcintyre Facility:[facility] Start: 01-31-2024 End: 01-31-2024 Subsequent hospital visit by physician Huy Ware [facility] Comment on above: Hyperlipidemia, unsp ecified Start: 01-31-2024 End: 01-31-2024 ambulatory TAHIRA PATEL [facility] Start: 09-15-2023 End: 09-15-2023 ambulatory [facility] Work Phone: Start: 09-15-2023 End: 09-15-2023 Patient encounter procedure [facility]-Outpatient Breast Imaging Work Phone: Start: 06-03-2023 End: 06-03-2023 Annotation/Addendum Tahira Patel DO Work Phone: [facility] Start: 05-16-2023 End: 05-16-2023 ambulatory ROSALIE MICHELLE [facility] Start: 05-16-2023 End: 05-16-2023 Office outpatient visit 15 minutes Rosalie Michelle COMMUNITY HEALTH PROGRAM COORDINATOR Work Phone: [facility] Comment on above: UTI symptoms (Primar y Dx) Start: 02-12-2023 End: 02-12-2023 Phone Encounter Tahira Fast DO Work Phone: [facility] Start: 10-05-2022 End: 10-05-2022 Phone Encounter Tahira Fast DO Work Phone: [facility] Start: 08-20-2022 End: 08-20-2022 ambulatory [facility] Work Phone: Start: 08-20-2022 End: 08-20-2022 Patient encounter procedure [facility]-Outpatient Breast Imaging Start: 06-04-2022 End: 06-04-2022 Patient encounter procedure [facility]-Radiology, [place] Start: 06-03-2022 ambulatory Tahira A Fast DO [facility] Start: 06-03-2022 End: 06-03-2022 Office outpatient visit 25 minutes Tahira Fast DO Work Phone: [facility] Start: 03-10-2022 End: 06-02-2022 Patient encounter procedure Tahira Fast DO Work Phone: [facility] Start: 03-10-2022 Review Tahira Fast DO Work Phone: [facility] Start: 02-20-2022 End: 02-20-2022 Lab Order Tahira Fast DO Work Phone: [facility] Start: 01-28-2022 End: 01-28-2022 Subsequent hospital visit by physician Ab Oates MD Work Phone: [facility] General Surgery Comment on above: S/P laparoscopic hys terectomy (Primary Dx) Start: 01-16-2022 End: 01-16-2022 Patient encounter procedure [facility], [facility] Start: 04-14-2021 End: 04-14-2021 Office outpatient new 30 minutes Sabino Bermudez DO Work Phone: [facility] Comment on above: Dysuria (Primary Dx) ; Acute cystitis without hematuria Procedures Date Procedure Procedure Detail Performing Clinician Start: 01-31-2024 CT CARDIAC SCORING W O IV CONTRAST TAHIRA FAST Start: 09-15-2023 Screening mammography Start: 05-16-2023 Urnls dip stick/tablet rgnt auto w/o microscopy Rosalie Michelle COMMUNITY HEALTH PROGRAM COORDINATOR Work Phone: Start: 02-02-2023 End: 02-02-2023 Electronics Engineering Technician Office Visit Report Procedure Note: See Note; NOTES: [facility] [address] [place] [address] OFFICE VISIT Date of Service: 02/02/23 MR#: [id number] Acct: [id number] Name: REGINA ALAMO Rep #: [id number] : 1960 Provider: Dr. 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) Chief Complaint: Annual Roll Carrier Required: No Is patient in pain?: No Allergies Sulfa (Sulfonamide Antibiotics) Allergy (Unknown, Verified 02/02/23 13:28) Unknown Medications ascorbate calcium (vitamin C) 500 mg tablet 500 mg PO DAILY 05/10/20 [History Confirmed 02/02/23] lactobacillus combination no.8 3 billion cell capsule (Adult Probiotic) 3,000 mmu cells PO DAILY 05/10/20 [History Confirmed 02/02/23] cholecalciferol (vitamin D3) 50 mcg (2,000 unit) capsule 50 mcg PO DAILY 07/03/20 [History Confirmed 02/02/23] elderberry fruit 200 mg capsule mg PO 07/03/20 [History Confirmed 02/02/23] zinc 50 mg tablet 50 mg PO DAILY 07/03/20 [History Confirmed 02/02/23] cranberry 400 mg capsule 400 mg PO DAILY 02/02/23 [History Confirmed 02/02/23] Is last menstrual period known: No Post menopausal: Yes Patient : No : No PFSH Medical History Arthritis History of back problems Surgical History (Updated 02/02/23 @ 13:36 by Maribel Haider) S/P total hysterectomy vein ablation Social History Smoking Status: Never smoker alcohol intake: never substance use type: does not use caffeine: Yes what type of physical activity do you participate in: walking seatbelt use: always do you feel safe at home: Yes additional social history: Marco- History 3 Elective abortions Hx Para 3 Spontaneous abortions Hx # Term Pregnancies Ectopic pregnancies Hx # Pregnancies Multiple births # of living children Past Pregnancies Del. Date Name GA/Weeks Outcome Route Bth Weight Infant Gen Labor Lgth Anesthesia Del Locatn Provider FOB Unknown 1984 [facility] Unknown 1986 [place] Unknown 1991 [facility] HPI Encounter for routine gynecological examination Details: REGINA ALAMO is a 62 year old who presents for annual exam. moved to [place] Last PAP: 2019 History of abnormal PAP: no severe Last mammogram: 2021 History of abnormal mammogram: no Colon cancer screening: pcp Other preventative health care screenings: pcp ROS Const Constitutional: Reports as per HPI; Denies fatigue, increased appetite, poor appetite, weight gain or weight loss Cardio Card: Denies chest pain Resp Resp: Denies cough or dyspnea GI GI: Reports as per HPI; Denies abdominal pain, bloating, constipation, nausea or vomiting : Reports as per HPI and other; Denies difficulty voiding, dysuria, hematuria, nipple discharge, pelvic pain, prolapse symptoms, urinary frequency, urinary incontinence, urinary urgency, vaginal discharge, vaginal dryness, vaginal odor or vaginal pruritus Skin Skin/Breast: Denies changing lesions, breast mass, breast pain, breast skin changes or nipple discharge Psych Psych: Denies anxiety or depression Exam Const General: cooperative, healthy appearing, comfortable, no acute distress, well developed and well groomed HENMI Head: normal to inspection and normocephalic Ears: hearing grossly normal bilaterally and external ears normal Nose: external nose normal Face and sinus: normal facial exam Neck Neck: normal visual inspection, full ROM and no lymphadenopathy Thyroid: thyroid normal Chest Chest palpation inspection: normal inspection of the chest Breast inspection: normal inspection of the breasts and normal inspection of the axillae Breast palpation: normal palpation of the breasts, normal palpation of the axillae and no axillary lymphadenopathy Resp Effort Inspection: normal respiratory effort GI Inspection: normal to inspection and non-distended Palpation: soft, no hepatosplenomegaly and no guarding General: bladder normal to palpation External Female Exam: normal external appearance, normal appearance of the urethra and no lesions Urethra: normal appearance of the urethra and normal palpation Speculum Exam - Vagina: normal appearance of the vagina and normal vaginal discharge Bimanual Exam- Vagina Uterus: bladder normal to palpation Bimanual Exam- Adnexa, other: normal adnexae, no masses and non-tender Skin General: no rashes or lesions noted Neuro General: patient alert, moves all extremities and no focal motor deficits Extrem General: normal to inspection and no pedal edema Psych Appearance: grossly normal Mental Status: mental status grossly normal Affect: normal affect Speech and Movement: speech and movement normal Attitude: cooperative Coding Level of Care Code Off vis,est,prev 40-64yrs Diagnoses Encounter for routine gynecological examination Z01.419 Gynecological examination findings: abnormal findings ABSENT Assessment and Plan Assessment and Plan (1) Encounter for routine gynecological examination: Qualifiers: Gynecological examination findings: abnormal findings ABSENT Qualified Code(s): Z01.419 - Encounter for gynecological examination (general) (routine) without abnormal findings Plan Cervical cancer screening: hyst Breast cancer screening: mamm other health maintenance examination reviewed and orders placed if needed. Encouraged maintenance of a healthy weight and active lifestyle and handout given. Annual exam handout including recommendations for good health guidelines, Calcium/vitamin D recommendations, and basic screening information given. Problem list up to date, see problem list details for any additional plan information. Follow up in one year for annual health maintenance exam or sooner if needed. 02/02/23 1403 <Electronically signed by Dora Mcintyre MD> Date Dora Mcintyre MD Cosigner Signature: Date (if applicable) CC: Tahira Patel DO Work Phone: Start: 08-20-2022 Screening mammography Start: 08-20-2022 End: 08-20-2022 SCRN MAMM (CAD)W/OZ BILAT Procedure Note: See Note; NOTES: [facility] Imaging Services [address] [place] [address] SCRN MAMM (CAD)W/OZ BILAT MR#: [id number] Acct: [id number] Name: REGINA ALAMO Rep #: [id number] : 1960 F 62 From: River espinal MD PCP: Dr. Tahira Patel, DO Status: [facility] Study: SCRN MAMM (CAD)W/OZ BILAT Date of Exam: 05/04 Exam# [id number] Ordering Dr: Dora Mcintyre MAMMOGRAPHY - BILATERAL SCREENING REASON FOR EXAM: Female, 62 years old. Routine annual screening examination. PERTINENT HISTORY: Non-contributory. TECHNIQUE: Digital bilateral breast oz (3D mammographic acquisition) in the CC and MLO projections. 2-D mediolateral oblique (MLO) and craniocaudad (CC) views of both breasts were obtained. CAD: Full Field Digital Mammography with Computer Added Detection was performed. COMPARISON: Comparison is made with prior study 08/06/2021 and 07/12/2020. FINDINGS: Breast Composition: The breasts are extremely dense, which lowers the sensitivity of mammography. There are no dominant masses or suspicious calcifications. Stable small benign-appearing bilateral axillary. No other significant abnormalities are identified. There has been no significant change since the prior study. BI/SCRN MAMM (CAD)W/OZ BILAT IMPRESSION: Stable bilateral screening mammogram. Yearly follow-up mammogram recommended. (A) ASSESSMENT CATEGORY: BIRADS Category 2: Benign. A letter regarding these results will be sent to the patient by the facility within 30 days. Approximately 10% of breast cancers are not detected by mammography. A normal mammogram should not delay biopsy of a clinically suspicious abnormality. [id number] Electronically Signed: River Alanis MD at 11:53 EST , CC: Dr. Tahira Patel DO; Dr. Dora Mcintyre MD Die Maintenance: Signed Tahira Patel DO Work Phone: Start: 06-04-2022 End: 06-04-2022 Knee 4 or More Views Procedure Note: See Note; NOTES: [facility] Imaging Services [address] [place] [id number] Knee 4 or More Views MR#: [id number] Acct: [id number] Name: REGINA ALAMO Rep #: [id number] : 1960 F 62 From: Emmanuel Zambrano PCP: Dr. Tahira Patel DO Status: REG CLI Study: Knee 4 or More Views Date of Exam: 06/04/22 Exam# [id number] Ordering Dr: Tahira Patel DO STUDY: X-RAY - LEFT KNEE REASON FOR EXAM: Medial left knee pain and swelling for 1 to 2 months, no specific injury. TECHNIQUE: 4 view(s) of the knee. COMPARISON: None. FINDINGS: Normal visualized distal femur. Normal visualized proximal tibia and fibula. Normal proximal tibiofibular articulation. There is mild joint space narrowing of the medial femorotibial compartment. Normal lateral femorotibial compartment. Normal patellofemoral articulation. The soft tissue structures are unremarkable. RAD/Knee 4 or More Views IMPRESSION: Mild arthrosis of the medial femorotibial compartment. Electronically Signed: Emmanuel Clarke MD at 15:03 EDT , CC: Dr. Tahira Patel, DO Die Maintenance: Signed Tahira Patel DO Work Phone: Start: 06-04-2022 Radiologic examination of knee Start: 01-28-2022 OPERATIVE REPORT Physic gama Generic Start: 01-28-2022 End: 01-28-2022 Total hysterectomy Tahira Patel DO Work Phone: Comment on above: Dr. Oates Start: 01-28-2022 ELI STUDIO 3 Enzo Oates MD Work Phone: Start: 01-28-2022 Antibody screen Ab Oates MD Work Phone: Start: 01-28-2022 Blood count complete automated Lamont Trimble DO Work Phone: Start: 01-28-2022 Blood typing serologic abo Lamont Trimble DO Work Phone: Start: 01-16-2022 US urinary tract Start: 04-14-2021 Urnls dip stick/tablet rgnt auto w/o microscopy Sabino Bermudez DO Work Phone: Start: 05-03-2017 Gynecologic examination Annual gynecological examination Dora Mcintyre MD Start: 05-03-2017 Screening for malignant neoplasm of cervix Screening for cervical cancer Dora Mcintyre MD Start: 05-03-2017 Screening for malignant neoplasm of colon Screening for colon cancer Dora Mcintyre MD Start: 04-21-2017 End: 04-21-2017 Urinalysis Juliana Ruggiero SHREDDING SPECIALIST Start: 04-21-2017 End: 04-21-2017 Urinalysis nonauto w/o scope Juliana Ruggiero SHREDDING SPECIALIST Work Phone: Start: 01-07-2017 End: 01-07-2017 Urinalysis Juliana Ruggiero SHREDDING SPECIALIST Start: 01-07-2017 End: 01-07-2017 Urinalysis nonauto w/o scope Charles BROWNE Work Phone: Start: 12-28-2016 End: 12-28-2016 Urinalysis nonauto w/o scope Charles BROWNE Work Phone: Common laser ablatio n of great saphenes veins Tahira Patel DO Work Phone: Comment on above: Common laser ablatio n of great saphenes veins Jing Del Rosario JOURNEYMAN MOLDER Comment on above: H/O: hysterectomy S/P laparoscop ic hysterectomy Ab Oates MD Work Phone: Plan of Treatment Date Care Activity Detail Author Start: 2034 Respiratory Syncytia l Virus Immunization: Risk, 60-74 Risk, or 75+ (1 - 1-dose 75+ series) Respiratory Syncytial Virus Immunization: Risk, 60-74 Risk, or 75+ (1 - 1-dose 75+ series) [facility] Start: 03-24-2029 Tetanus vaccination Tetanus: Every 1 0yrs [facility] Start: 01-23-2025 X-ray of foot, three or more views Foot min 3 Views [facility] Start: 2024 Fall risk assessment Falls Risk Asse ssment [facility] Start: 2024 Pneumococcal Vaccine : 65+ Years (1 of 1 - PCV) Pneumococcal Vaccine: 65+ Years (1 of 1 - PCV) [facility] Start: 2024 Pneumococcal Vaccine : Age 65+ (1 of 1 - PCV) Pneumococcal Vaccine: Age 65+ (1 of 1 - PCV) [facility] Start: 05-14-2024 COVID-19 Vaccine ( season) COVID-19 Vaccine ( season) [facility] Start: 05-14-2024 Influenza vaccination [facility] Start: 05-14-2023 COVID-19 Vaccine ( season) COVID-19 Vaccine ( season) [facility] Start: 05-14-2023 Influenza vaccination Sequenti al Influenza Vaccine (#1) [facility] Start: 06-03-2022 Procedure Education Eprescribe d prescriptions (G8553) [facility] Work Phone: Start: 06-03-2022 Comprehensive metabo lic panel METABOLIC PANEL, COMPREHENSIVE (52171) [facility] Work Phone: Start: 06-03-2022 Lipid panel LIPID PANEL (01023) [facility] Work Phone: Start: 06-03-2022 C-reactive protein h igh sensitivity C-REACT PROT HIGH SENS(hsCRP) ([id number]) [facility] Work Phone: Start: 05-14-2022 Influenza vaccination Flu vacc ine (Season Ended) [facility] Start: 03-10-2022 Comprehensive metabo lic panel METABOLIC PANEL, COMPREHENSIVE ([id number]) [facility] Work Phone: Start: 03-10-2022 Sedimentation rate r bc non-automated ESR-F (SED RATE ERYTHROCYTE - FEMALE) ([id number]) [facility] Work Phone: Start: 03-10-2022 Lipid panel LIPID PANEL ([id number]) [facility]; [facility] Work Phone: Start: 03-10-2022 C-reactive protein h igh sensitivity C-REACT PROT HIGH SENS(hsCRP) ([id number]) [facility]; [facility] Work Phone: Start: 02-20-2022 CBC, PLATELETS & MAN UAL DIFF ([id number]) CBC, PLATELETS & MANUAL DIFF (17683) [facility] Work Phone: Start: 02-20-2022 Comprehensive metabo lic panel METABOLIC PANEL, COMPREHENSIVE ([id number]) [facility] Work Phone: Start: 02-11-2022 End: 02-11-2022 Patient encounter procedure 02/11/2022 Office Visit Gynecologic Oncology Ab Oates MD [address] [place] [address] [facility] [place] ASSISTANT PROFESSOR Oncology Start: 05-14-2021 Influenza vaccination Sequenti al Influenza Vaccine (#1) [facility] Start: 2019 RSV patient s and/or patients aged 60+ years (1 - 1-dose 60+ series) RSV patients and/or patients aged 60+ years (1 - 1-dose 60+ series) [facility] Start: 03-25-2019 DTaP/Tdap/Td vaccine (1 - Tdap) DTaP/Tdap/Td vaccine (1 - Tdap) [facility] Start: 03-25-2019 DTaP/Tdap/Td Vaccine s (1 - Tdap) DTaP/Tdap/Td Vaccines (1 - Tdap) [facility] Start: 05-03-2018 Screening for malign ant neoplasm of colon [facility] Start: 05-03-2017 End: 05-03-2017 Appointment Appointment [facility] Start: 05-03-2017 End: 05-03-2017 Glucose *Glucose, Fasting [facility] Start: 05-03-2017 End: 05-03-2017 Glucose mass conc *Glucose, Fasting [facility] Start: 05-03-2017 End: 05-03-2017 Lipid panel [AGGREGATE] *Lipid Profile [facility] Start: 05-03-2017 End: 05-03-2017 Urine culture, bacteria *CUUR - Culture, Urine ([place] Count) [facility] Start: 04-21-2017 End: 04-21-2017 Appointment Appointment [facility] Start: 04-21-2017 End: 04-21-2017 Bacteria genital culture *CUV - Culture, VAG/CX [facility] Start: 04-13-2017 End: 04-21-2017 Urine culture, bacteria *CUUR - Culture, Urine ([place] Count) [facility] Start: 04-02-2017 End: 04-02-2017 Appointment Appointment [facility] Start: 04-02-2017 End: 04-02-2017 Mammogram, screening Mammogram-Bilateral, Screening, Bilateral [facility] Start: 04-02-2017 End: 04-02-2017 Urine culture, bacteria Urine Culture [facility] Work Phone: Start: 01-07-2017 End: 01-07-2017 Urinalysis complete panel - Urine *UAC- Urinalysis, Complete w/ Micro [facility] Start: 2009 Administration of he rpes zoster vaccine Zoster Vaccines (1 of 2) [facility] Start: 2009 Screening for malign ant neoplasm of breast Breast cancer screen [facility] Start: 2009 Screening for malign ant neoplasm of colon [facility] Start: 2009 Shingles vaccine (1 of 2) Shingles vaccine (1 of 2) [facility] Start: 2009 Zoster Vaccines (1 of 2) Zoste r Vaccines (1 of 2) [facility] Start: 2004 Screening for malign ant neoplasm of colon [facility] Start: 1999 Lipid panel Lipids [facility] Start: 1999 Screening for malign ant neoplasm of breast Mammogram [facility] Start: 1994 Diabetes screen Diabetes screen [facility] Start: 1989 Screening for malign ant neoplasm of cervix [facility] Start: 1980 Screening for malign ant neoplasm of cervix [facility] Start: 1977 Hepatitis C screening [facility] Start: 1974 HIV screening [facility] Start: 1971 COVID-19 Vaccine (1) COVID-19 Vaccin e (1) [facility] Start: 1971 Depression Screen Depression Screen [facility] Start: 1971 Depression screening using PHQ-9 (Patient Health Questionnaire 9) score [facility] Start: 1964 COVID-19 Vaccine (1) COVID-19 Vaccin e (1) [facility] Start: 1962 History and physical examination, annual for health maintenance Wellness Visit [facility] Start: 1960 MMR Vaccines (1 of 1 - Standard series) MMR Vaccines (1 of 1 - Standard series) [facility] Start: 1959 COVID-19 Vaccine (#1) COVID-19 Vacci ne (#1) [facility] Start: 1959 HIV screening HIV Screening [facility] Start: 1959 Lipid panel Lipid Panel [facility] Start: 1959 Screening for malign ant neoplasm of cervix Pap Smear [facility] Start: 1959 Screening for malign ant neoplasm of colon [facility] Start: 1959 Screening for osteoporosis Dexa Scan [facility] Start: 1959 Yearly Adult Physical Yearly Adult P [facility] Bacteria identified in Unspecified specimen by Aerobe culture Urine culture Microbiology Routine Acute cystitis without hematuria Ordered: 04/14/2021 [facility] Comment on above: Ordered: 04/14/2021 Bacteria identified in Unspecified specimen by Aerobe culture Urine culture Microbiology Routine UTI symptoms Ordered: 05/16/2023 [facility] Work Phone: Comment on above: Ordered: 05/16/2023 Blood glucose - POCT Blood gluco se - POCT Point of Care Testing STAT As Needed until discontinued starting 01/28/2022 [employer] Work Phone: Comment on above: As Needed until disc ontinued starting 01/28/2022 End: 01-28-2022 Creatinine [Mass/volume] in Serum or Plasma Creatinine, serum Lab STAT One Time for 1 Occurrences starting 01/28/2022 until 01/28/2022 [employer] Work Phone: Comment on above: One Time for 1 Occur rences starting 01/28/2022 until 01/28/2022 End: 01-31-2024 CT for calcium scoring WO contrast and CTA W contrast IV Heart and coronary arteries [facility] Work Phone: Comment on above: Once for 1 Occurrenc es starting 01/31/2024 until 01/31/2024 End: 01-28-2022 INITIATE PACU OXYGEN THERAPY PROTOCOL Initiate PACU Oxygen Therapy Protocol Respiratory Care Routine Continuous until discontinued starting 01/28/2022 [facility] Work Phone: Comment on above: Continuous until dis continued starting 01/28/2022 End: 01-28-2022 Intermittent pulse oximetry Pulse Oximetry Spot Check Respiratory Care Routine One Time for 1 Occurrences starting 01/28/2022 until 01/28/2022 [facility] Work Phone: Comment on above: One Time for 1 Occur rences starting 01/28/2022 until 01/28/2022 Nasal Cannula Oxygen Nasal Cannu la Oxygen Respiratory Care Routine As Needed until discontinued starting 01/28/2022 [facility] Work Phone: Comment on above: As Needed until disc ontinued starting 01/28/2022 Nasal Cannula Oxygen Nasal Cannu la Oxygen Respiratory Care Routine As Needed until discontinued starting 01/28/2022 [facility] Work Phone: Comment on above: As Needed until disc ontinued starting 01/28/2022 Nonrebreather mask oxygen Nonrebreather mask oxygen Respiratory Care Routine As Needed until discontinued starting 01/28/2022 [facility] Work Phone: Comment on above: As Needed until disc ontinued starting 01/28/2022 Nonrebreather mask oxygen Nonrebreather mask oxygen Respiratory Care Routine As Needed until discontinued starting 01/28/2022 [facility] Work Phone: Comment on above: As Needed until disc ontinued starting 01/28/2022 Oxygen therapy [[facility] Data Set] Initiate Oxygen Therapy Protocol Respiratory Care Routine As Needed until discontinued starting 01/28/2022 [employer] Work Phone: Comment on above: As Needed until disc ontinued starting 01/28/2022 Patient Education URINARY%20TRAC T%20INFE CTION%20IN%20WOMEN [facility] End: 01-28-2022 Potassium w/ Reflex to Magnesium Potassium w/ Reflex to Magnesium Lab Routine One Time for 1 Occurrences starting 01/28/2022 until 01/28/2022 [employer] Work Phone: Comment on above: One Time for 1 Occur rences starting 01/28/2022 until 01/28/2022 End: 01-28-2022 , urine POCT , urine POCT Point of Care Testing Routine One Time for 1 Occurrences starting 01/28/2022 until 01/28/2022 [facility] Work Phone: Comment on above: One Time for 1 Occur rences starting 01/28/2022 until 01/28/2022 End: 01-28-2022 Protime-INR Protime-INR Lab STAT One Time for 1 Occurrences starting 01/28/2022 until 01/28/2022 [facility] Work Phone: Comment on above: One Time for 1 Occur rences starting 01/28/2022 until 01/28/2022 Spirometry panel Incentive nancy metry Respiratory Care Routine Q1H PRN until discontinued starting 01/28/2022 [facility] Work Phone: Comment on above: Q1H PRN until discon tinued starting 01/28/2022 End: 01-28-2022 Surgical Pathology [facility] Work Phone: Comment on above: Once for 1 Occurrenc es starting 01/28/2022 until 01/28/2022 [facility] Work Phone: [facility] Work Phone: [facility] Work Phone: [facility] Work Phone: Payers Date Payer Category Payer Medicare [id number] 2024 Self-pay [id number] 2024 Medicare HMO [employer] GOLD PLUS HMO [id number] 1959 Unknown [id number] Self-pay SELF PAY INSURANCE [id number] Unknown [id number] Unknown [facility] [id number] Unknown [facility] [id number] Unknown [id number] Unknown [id number] Unknown [id number] Unknown [id number] Unknown [id number] Social History Date Type Detail Facility Start: 04-14-2021 End: 01-23-2025 Tobacco smoking status NHIS Never smoker [facility] Start: 04-14-2021 End: 05-16-2023 Tobacco use and exposure Never used [facility] Start: 04-14-2021 End: 08-21-2024 Alcohol intake Lifetime non-drinker (finding) [facility] Start: 04-14-2021 History SDOH Alcohol Frequency 1 [facility] Start: 1960 Sex Assigned At Not on file [facility] Start: 01-18-2022 End: 01-31-2024 Exposure to SARS-CoV-2 (event) Not sure [facility] Start: 1960 Sex Assigned At Female [facility] Start: 07-14-2021 End: 02-02-2023 Tobacco smoking status MDIS Unknown if ever smoked [facility] Start: 10-23-2021 End: 08-21-2024 Non Drinker/No Alcohol Use Non Drinker/No Alcohol Use [facility] Work Phone: Tobacco use: Tobacco use: [facility] Work Phone: Start: 10-23-2021 End: 08-21-2024 Tobacco use panel [facility] Start: 05-16-2023 Gender identity Identifies as female gender (finding) [facility] Start: 05-16-2023 Sexual orientation Heterosexual (finding) [facility] Clinical Notes 04-14-2021 to 08-21-2024 Helen Grant, DO - 08/21/2024 11:21 AM ESTPatient Rosalie Alvarado, COMMUNITY HEALTH PROGRAM COORDINATOR - 05/16/2023 12:55 PM EDTInsJessica Sabino Palaciosn, DO - 04/14/2021 4:42 PM EDT Note Date & Type Note Facility 08-21-2024 Note HISTORY Patient Name: Regina Alamo Date of Exam: 08/21/2024 Date of Surgery: 08/21/24 Chief Complaint Patient presents with Perioperative Medical Evaluation H43.12 Reason for visit/consultation: Medical risk stratification for same day surgery History of current illness: Regina Alamo is a 64 y.o. female who presents for preoperative medical risk stratification prior to eye surgery at the request of Tyler Hendrickson* Her medical conditions include: HLD, being monitored without statin therapy, denies angina Chronic knee/leg pain, arthritis, stable (last used Mobic over a month ago) UTI, recently treated with Macrobid, has 1-2 doses left and symptoms have resolved Patient Active Problem List Diagnosis Hyperlipidemia Past Medical History: Diagnosis Date Hyperlipidemia Type of anesthesia: MAC Anesthesia History: Yes, without complications Past Surgical History: Procedure Laterality Date HYSTERECTOMY (CERVIX REMOVED) Allergies Allergen Reactions Sulfa (Sulfonamide Antibiotics) Review of Systems Constitutional: Negative for fever. HENT: Negative for nosebleeds. Eyes: Positive for visual disturbance. Negative for discharge. Respiratory: Negative for shortness of breath. Cardiovascular: Negative for chest pain. Gastrointestinal/: Negative for abdominal pain, vomiting, or dysuria. Skin: Negative for rash. Neurological: Negative for seizures. Hematological: Does not bruise/bleed easily. Psychiatric/Behavioral: Negative for confusion. Social History Social History Tobacco Use Smoking status: Never Smokeless tobacco: Never Substance Use Topics Alcohol use: Never Social History Substance and Sexual Activity Drug Use Never Marital Status: History reviewed. No pertinent family history. Current Outpatient Medications Medication Sig Dispense Refill cholecalciferol, vitamin D3, (VITAMIN D3 ORAL) Take by mouth . lactobacillus combo no.11 (Probiotic) 15 billion cell CpSP Take by mouth . meloxicam (MOBIC) 15 MG tablet nitrofurantoin, macrocrystal-monohydrate, (MACROBID) 100 MG capsule Take 1 (one) capsule (100 mg total) by mouth 2 (two) times a day . zinc sulfate (ZINC-15 ORAL) Take by mouth . No current facility-administered medications for this visit. PHYSICAL Patient Name: Regina Alamo Age: 64 y.o. BP 113/76 Pulse (!) 50 Temp 97.8 degrees F (36.6 degrees C) (Infrared) Resp 16 Ht 5' 4 Wt 68.9 kg (152 lb) SpO2 96% BMI 26.09 kg/m Physical Exam General: Alert, cooperative, well appearing, in no apparent distress. Head: Head is symmetric, normocephalic without evidence of trauma or deformity. Eyes: The extra-ocular movements are intact. There is no discharge. Neck: Full range of motion. No carotid bruits. CV: Mild bradycardia. The heart sounds are regular in rhythm. There are no murmurs, rubs, or gallops. Distal pulses are intact and equal. Lungs: Inspiratory and expiratory efforts are full and unlabored. Lung sounds are clear and equal to auscultation throughout all lung zavala without wheezing, rales, or rhonchi. GI: The abdomen is soft and nontender. There is no rebound or guarding. Neuro: Alert. Cranial Nerves intact grossly. Motor strength intact grossly. Gait: Normal Extremities: There is no clubbing, cyanosis, or edema. Skin: Warm and dry without rash. EKG Results: Not indicated No results found for this visit on 08/21/24. Reviewed outside labs/imaging/notes: None IMPRESSION/PLAN: 64 y.o. female being seen today for preoperative medical risk stratification for same-day eye surgery at the request of Tyler Hendrickson* 1. Pre-operative examination 2. Vitreous hemorrhage of left eye (HCC) 3. Hyperlipidemia, unspecified hyperlipidemia type Risk factors for surgery include: HLD Recently treated for UTI with resolution of symptoms Patient is at higher risk for falls due to vision impairment. Preoperative recommendations: I reviewed the patient's pertinent medical history and medications. No additional recommendations or changes are warranted prior to her scheduled surgery. Risk Assessment: The patient is currently in a medically optimal state and the risk of surgery is acceptable at this time. Questions regarding her medical issues were answered and discussed. Postoperative recommendations: Patient was instructed to continue her current medical regimen following surgery, unless instructed otherwise by her surgeon. The patient will follow up with her PCP for any additional medical concerns. This patient has an acceptable cardiac risk for the intended procedure, it is my professional opinion that the patient does not have any medical condition at this present time that significantly increase the risk for an adverse outcome. Thank you for the opportunity to evaluate your patient. Please feel free to contact our office with any questions. A copy of this evaluation was pro (more content not included)... [facility] 08-21-2024 History of Present illness Narrative HISTORY Patient Name: Regina Alamo Date of Exam: 08/21/2024 Date of Surgery: 08/21/24 Chief Complaint Patient presents with Perioperative Medical Evaluation H43.12 Reason for visit/consultation: Medical risk stratification for same day surgery History of current illness: Regina Alamo is a 64 y.o. female who presents for preoperative medical risk stratification prior to eye surgery at the request of Tyler Hendrickson* Her medical conditions include: HLD, being monitored without statin therapy, denies angina Chronic knee/leg pain, arthritis, stable (last used Mobic over a month ago) UTI, recently treated with Macrobid, has 1-2 doses left and symptoms have resolved Patient Active Problem List Diagnosis Hyperlipidemia Past Medical History: Diagnosis Date Hyperlipidemia Type of anesthesia: MAC Anesthesia History: Yes, without complications Past Surgical History: Procedure Laterality Date HYSTERECTOMY (CERVIX REMOVED) Allergies Allergen Reactions Sulfa (Sulfonamide Antibiotics) Review of Systems Constitutional: Negative for fever. HENT: Negative for nosebleeds. Eyes: Positive for visual disturbance. Negative for discharge. Respiratory: Negative for shortness of breath. Cardiovascular: Negative for chest pain. Gastrointestinal/: Negative for abdominal pain, vomiting, or dysuria. Skin: Negative for rash. Neurological: Negative for seizures. Hematological: Does not bruise/bleed easily. Psychiatric/Behavioral: Negative for confusion. Social History Social History Tobacco Use Smoking status: Never Smokeless tobacco: Never Substance Use Topics Alcohol use: Never Social History Substance and Sexual Activity Drug Use Never Marital Status: History reviewed. No pertinent family history. Current Outpatient Medications Medication Sig Dispense Refill cholecalciferol, vitamin D3, (VITAMIN D3 ORAL) Take by mouth . lactobacillus combo no.11 (Probiotic) 15 billion cell CpSP Take by mouth . meloxicam (MOBIC) 15 MG tablet nitrofurantoin, macrocrystal-monohydrate, (MACROBID) 100 MG capsule Take 1 (one) capsule (100 mg total) by mouth 2 (two) times a day . zinc sulfate (ZINC-15 ORAL) Take by mouth . No current facility-administered medications for this visit. PHYSICAL Patient Name: Regina Alamo Age: 64 y.o. BP 113/76 Pulse (!) 50 Temp 97.8 F (36.6 C) (Infrared) Resp 16 Ht 5' 4 Wt 68.9 kg (152 lb) SpO2 96% BMI 26.09 kg/m Physical Exam General: Alert, cooperative, well appearing, in no apparent distress. Head: Head is symmetric, normocephalic without evidence of trauma or deformity. Eyes: The extra-ocular movements are intact. There is no discharge. Neck: Full range of motion. No carotid bruits. CV: Mild bradycardia. The heart sounds are regular in rhythm. There are no murmurs, rubs, or gallops. Distal pulses are intact and equal. Lungs: Inspiratory and expiratory efforts are full and unlabored. Lung sounds are clear and equal to auscultation throughout all lung zavala without wheezing, rales, or rhonchi. GI: The abdomen is soft and nontender. There is no rebound or guarding. Neuro: Alert. Cranial Nerves intact grossly. Motor strength intact grossly. Gait: Normal Extremities: There is no clubbing, cyanosis, or edema. Skin: Warm and dry without rash. EKG Results: Not indicated No results found for this visit on 08/21/24. Reviewed outside labs/imaging/notes: None IMPRESSION/PLAN: 64 y.o. female being seen today for preoperative medical risk stratification for same-day eye surgery at the request of Tyler Hendrickson* 1. Pre-operative examination 2. Vitreous hemorrhage of left eye (HCC) 3. Hyperlipidemia, unspecified hyperlipidemia type Risk factors for surgery include: HLD Recently treated for UTI with resolution of symptoms Patient is at higher risk for falls due to vision impairment. Preoperative recommendations: I reviewed the patient's pertinent medical history and medications. No additional recommendations or changes are warranted prior to her scheduled surgery. Risk Assessment: The patient is currently in a medically optimal state and the risk of surgery is acceptable at this time. Questions regarding her medical issues were answered and discussed. Postoperative recommendations: Patient was instructed to continue her current medical regimen following surgery, unless instructed otherwise by her surgeon. The patient will follow up with her PCP for any additional medical concerns. This patient has an acceptable cardiac risk for the intended procedure, it is my professional opinion that the patient does not have any medical condition at this present time that significantly increase the risk for an adverse outcome. Thank you for the opportunity to evaluate your patient. Please feel free to contact our office with any questions. A copy of this evaluation was provided to the referring physician. Helen Grant D.O. Family Medicine / Sports Medicine [facility] Primary Care Physicians documented in this encounter [facility] 05-16-2023 Instructions Rosalie Michelle CNP - 05/16/2023 1:14 PM EDT 1. Take antibiotic as instructed 2. Push fluid, can include popsicles if not diabetic. 3. If symptoms persists or any acutely worsening symptoms, please go to ER Recommended taking all medications with food and to stop medications if they develop any signs of an allergic reaction. If urinary tract infection is recurrent may need to see urology for further care and evaluation. documented in this encounter [facility] 05-16-2023 History of Present illness Narrative Images from the original note were not included. Patient Name: [facility] Location: [facility] [address] [place] [id number] Date Of : Date Of Visit: 1960 05/16/2023 MRN# Provider: [id number] Rosalie Michelle CNP Chief Complaint Patient presents with Urinary Tract Infection Frequency, pain was on an antibiotic 1 week ago, symptoms returned Assessment & Plan 1. UTI symptoms POC Urinalysis Dipstick,Auto UC Urine culture amoxicillin (AMOXIL) 875 MG tablet Medical Decision Making Patient arrives to Urgent Care in evaluation of: Nontoxic-appearing female presenting with UTI symptoms. UA indicative of UTI. Urine culture sent. At this time low suspicion for pyelonephritis or nephrolithiasis. Patient has been on Cipro in the middle of April, will switch to amoxicillin 875 mg twice a day x10 days push fluids. ED return precaution given. Follow up with pcp if sx persists. Patient was given opportunity to ask any questions, and all questions were answered appropriately. Patient understood and agreed. Stable at discharge. 1. Take antibiotic as instructed 2. Push fluid, can include popsicles if not diabetic. 3. If symptoms persists or any acutely worsening symptoms, please go to ER Recommended taking all medications with food and to stop medications if they develop any signs of an allergic reaction. Recommended follow up within the next week with their PCP or to get established with a PCP soon in order to follow up appropriately. If urinary tract infection is recurrent may need to see urology for further care and evaluation. Orders Placed This Visit Orders Placed This Encounter Procedures Urine culture POC Urinalysis Dipstick,Auto UC Results Recent Results (from the past 168 hour(s)) POC Urinalysis Dipstick,Auto UC Collection Time: 05/16/23 1:11 PM Result Value Ref Range POC Color, Urine Yellow Yellow, Light Yellow, Dark Yellow Clarity, UA Cloudy (A) Clear Glucose, UA Negative Normal, Negative mg/dL Bilirubin, UA Negative Negative Ketones, UA Negative Negative mg/dL Spec Grav, UA 1.030 (A) 1.005 - 1.025 Blood, UA Moderate (A) Negative pH, UA 5.5 5.0 - 7.0 Protein, UA 30 (A) Negative mg/dL Urobilinogen, UA 0.2 <2.0, 0.2, Normal, Negative, 1.0, 2.0, <1.0 mg/dL Nitrite, UA Positive (A) Negative Leukocyte Esterase, UA Small (A) Negative No orders to display Subjective 62 y.o. female presents with Urinary Tract Infection (Frequency, pain was on an antibiotic 1 week ago, symptoms returned) Very pleasant 62-year-old female who presents with urinary tract infection symptoms. Has been on Cipro and finished that last month. Patient has had burning, frequency, urgency. Patient denies fevers or chills or any other complaints at this time. Review Of Systems Review of Systems Constitutional: Negative for fatigue and fever. HENT: Negative for congestion, rhinorrhea and sore throat. Eyes: Negative. Respiratory: Negative for cough, chest tightness and shortness of breath. Cardiovascular: Negative for chest pain and leg swelling. Gastrointestinal: Negative for diarrhea, nausea and vomiting. Endocrine: Negative. Genitourinary: Positive for dysuria, frequency and urgency. Negative for vaginal discharge. Musculoskeletal: Negative. Skin: Negative. Allergic/Immunologic: Negative. Neurological: Negative for dizziness, facial asymmetry, light-headedness and headaches. Hematological: Negative. Psychiatric/Behavioral: Negative. Constitutional: HEENT: Respiratory: Negative shortness of breath and wheezing. Cardiovascular: Negative for chest pain and palpitations, leg edema. Gastrointestinal: Negative for abdominal pain, diarrhea, nausea and vomiting. Genitourinary: Negative for dysuria, flank pain, frequency and urgency. Musculoskeletal: Negative for arthralgias and myalgias. Allergic/Immunologic: Negative for immunocompromised state. Neurological: Negative for dizziness, numbness and headaches. Hematological: Does not bruise/bleed easily. Psychiatric/Behavioral: The patient is not nervous/anxious. Medical History History reviewed. No pertinent past medical history. Past Surgical History: Procedure Laterality Date HYSTERECTOMY (CERVIX REMOVED) There is no problem list on file for this patient. Social History Social History Tobacco Use Smoking status: Never Smokeless tobacco: Never Vaping Use Vaping Use: Never used Substance Use Topics Alcohol use: Never Drug use: Never Family History History reviewed. No pertinent family history. Objective Physical Exam BP 102/70 Pulse 74 Temp 97.5 F (36.4 C) Resp 16 Wt 68.9 kg (152 lb) SpO2 98% Vision/Hearing Exam:No results found. Physical Exam Constitutional: General: She is not in acute distress. Appearance: She is not ill-appearing, toxic-appearing or diaphoretic. Pulmonary: Effort: Pulmonary effort is normal. No respiratory distress. Abdominal: General: Abdomen is flat. There is no distension. Tenderness: There is no abdominal tenderness. There is no guarding. Skin: General: Skin is warm and dry. Neurological: General: No focal deficit present. Mental Status: She is alert and oriented to person, place, and time. Psychiatric: Mood and Affect: Mood normal. Behavior: Behavior normal. Judgment: Judgment normal. Constitutional: Appears well-developed and well-nourished. No distress. HEENT: No scleral icterus or injection noted Head: Normocephalic and atraumatic. Cardiovascular: Rate reviewed Pulmonary/Chest: Effort normal, no conversational dyspnea Abdominal: : Musculoskeletal: Normal range of motion, No tenderness, deformity or noted edema. Neurological: Alert and oriented to person, place, and time. No focal deficits appreciated. Skin: Skin is warm and dry. No rash appreciated on limited exam Psychiatric: Normal mood and affect, behavior is normal. Judgment and thought content normal. After Visit instructions Patient Instructions 1. Take antibiotic as instructed 2. Push fluid, can include popsicles if not diabetic. 3. If symptoms persists or any acutely worsening symptoms, please go to ER Recommended taking all medications with food and to stop medications if they develop any signs of an allergic reaction. If urinary tract infection is recurrent may need to see urology for further care and evaluation. documented in this encounter [facility] 01-28-2022 Hospital Discharge instructions Live Pollack MD - 01/28/2022 Images from the original note were not included. Please follow your post operative care instructions given to you by your Research Program Coordinator Oncologist's office at your pre operative visit. Please call the office with questions or concerns and be sure to follow up at your scheduled post operative visit. Laparoscopic Hysterectomy: What to Expect at Home Your Recovery A laparoscopic hysterectomy is surgery to take out the uterus. Your doctor put a lighted tube and surgical tools through small cuts in your belly to removethe uterus. You can expect to feel better and stronger each day. But you might need pain medicine for a week or two. You may get tired easily or have less energy than usual. The tiredness may last for several weeks after surgery. And you also mayhave light vaginal bleeding for a few weeks. It's important to avoid lifting while you are recovering so that you can heal. It may take about 4 to 6 weeks to fully recover. The recovery time may beshorter for some people. This care sheet gives you a general idea about how long it will take for you to recover. But each person recovers at a different pace. Follow the steps belowto get better as quickly as possible. How can you care for yourself at home? Activity Rest when you feel tired. Getting enough sleep will help you recover. Try to walk each day. Start by walking a little more than you did the day before. Bit by bit, increase the amount you walk. Walking boosts blood flow and helps prevent pneumonia and constipation. Avoid lifting anything that would make you strain. This may include heavy grocery bags and milk containers, a heavy briefcase or backpack, bags of cat litter or dog food, a vacuum upholstery cleaner, or a child. Avoid strenuous activities, such as biking, jogging, weight lifting, or aerobic exercise, until your doctor says it is okay. Ask your doctor when you can drive again. You may shower 24 to 48 hours after surgery, if your doctor okays it. Pat the incision dry. Do not take a bath for the first 2 weeks, or until your doctor tells you it is okay. Ask your doctor when it is okay for you to have sex. Diet You can eat your normal diet. If your stomach is upset, try bland, low-fat foods like plain rice, broiled chicken, toast, and yogurt. If your bowel movements are not regular right after surgery, try to avoid constipation and straining. Drink plenty of water. Your doctor may suggest fiber, a stool softener, or a mild laxative. Medicines Your doctor will tell you if and when you can restart your medicines. You will also get instructions about taking any new medicines. If you take aspirin or some other blood thinner, ask your doctor if and when to start taking it again. Make sure that you understand exactly what your doctor wants you to do. Be safe with medicines. Read and follow all instructions on the label. ? If the doctor gave you a prescription medicine for pain, take it as prescribed. ? If you are not taking a prescription pain medicine, ask your doctor if you can take an [id number] medicine. If your doctor prescribed antibiotics, take them as directed. Do not stop taking them just because you feel better. You need to take the full course of antibiotics. Incision care You may have stitches over the cuts (incisions) the doctor made in your belly. If you have strips of tape on the cut (incision) the doctor made, leave the tape on for a week or until it falls off. Wash the area daily with warm, soapy water, and pat it dry. Don't use hydrogen peroxide or alcohol. They can slow healing. You may cover the area with a gauze bandage if it oozes fluid or rubs against clothing. Change the bandage every day. Other instructions You may have some light vaginal bleeding. Wear sanitary pads if needed. Do not douche or use tampons. Follow-up care is a delgado part of your treatment and safety. Be sure to make and go to all appointments, and call your doctor if you are having problems. It's also a good idea to know your test results and keep alist of the medicines you take. When should you call for help? Call 911 anytime you think you may need emergency care. For example, call if: You passed out (lost consciousness). You have chest pain, are short of breath, or cough up blood. Call your doctor now or seek immediate medical care if: You have pain that does not get better after you take pain medicine. You cannot pass stools or gas. You have vaginal discharge that has increased in amount or smells bad. You are sick to your stomach or cannot drink fluids. You have loose stitches, or your incision comes open. Bright red blood has soaked through the bandage over your incision. You have signs of infection, such as: ? Increased pain, swelling, warmth, or redness. ? Red streaks leading from the incision. ? Pus draining from the incision. ? A fever. You have severe vaginal bleeding. This means that you are soaking through your usual pads every hour for 2 or more hours. You have signs of a blood clot in your leg (called a deep vein thrombosis), such as: ? Pain in your calf, back of the knee, thigh, or groin. ? Redness and swelling in your leg or groin. Watch closely for changes in your health, and be sure to contact your doctor ifyou have any problems. Where can you learn more? Go to [email or web address] and sign in to your [employer] account. Enter Q131 in the Search Health Information box to learn more about Laparoscopic Hysterectomy: What to Expect at Home. If you do not have an account, please click on the Sign Up Now link. Current as of: August 04, 2021 Content Version: 13.2 [employer], 51wan. Care instructions adapted under license by [facility]. If you have questions about a medical condition or this instruction, always ask your healthcare professional. [employer] disclaims any warranty or liability for your use of this information. documented in this encounter [facility] Work Phone: 04-14-2021 History of Present illness Narrative Chief Complaint Patient presents with Dysuria Pain and frequency with little output x 1 day. PT started taking Mucinex yesterday for some cold symptoms and this started about 4 hours later. States she looked at the Mucinex side effects and it said after taking if trouble urinating seek medical attention. Urinary Frequency SUBJECTIVE 60 y.o. female presents Dysuria (Pain and frequency with little output x 1 day. PT started taking Mucinex yesterday for some cold symptoms and this started about 4 hours later. States she looked at the Mucinex side effects and it said after taking if trouble urinating seek medical attention.) and Urinary Frequency 60-year-old white female has been having some dysuria and frequency for last 1 day. Mild mild lower abdominal cramping. History of urinary tract infection in January of this year. No back pain or nausea vomiting or fevers. No vaginal bleeding or discharge. MEDICAL ISSUES History reviewed. No pertinent past medical history. There is no problem list on file for this patient. SOCIAL HISTORY Social History Socioeconomic History Marital status: Unknown Spouse name: Not on file Number of children: Not on file Years of education: Not on file Highest education level: Not on file Occupational History Not on file Tobacco Use Smoking status: Never Smoker Smokeless tobacco: Never Used Substance and Sexual Activity Alcohol use: Never Drug use: Never Sexual activity: Not on file Other Topics Concern Not on file Social History Narrative Not on file Social Determinants of Health Financial Resource Strain: Difficulty of Paying Living Expenses: Food Insecurity: Worried About Running Out of Food in the Last Year: Ran Out of Food in the Last Year: Transportation Needs: Lack of Transportation (Medical): Lack of Transportation (Non-Medical): Physical Activity: Days of Exercise per Week: Minutes of Exercise per Session: Stress: Feeling of Stress : Social Connections: Frequency of Communication with Friends and Family: Frequency of Social Gatherings with Friends and Family: Attends Muslim Services: Active Member of Clubs or Organizations: Attends Club or Organization Meetings: Marital Status: FAMILY HISTORY History reviewed. No pertinent family history. REVIEW OF SYSTEMS Review of Systems Constitutional: Negative for activity change, chills and fever. HENT: Negative for congestion and sore throat. Eyes: Negative for discharge. Respiratory: Negative for cough and shortness of breath. Cardiovascular: Negative for chest pain. Gastrointestinal: Positive for abdominal pain. Negative for nausea and vomiting. Genitourinary: Positive for dysuria and frequency. Musculoskeletal: Negative for back pain. Skin: Negative for rash. Neurological: Negative for dizziness and headaches. Psychiatric/Behavioral: Negative for behavioral problems. All other systems reviewed and are negative. MEDICATIONS PRIOR TO VISIT Current Outpatient Medications on File Prior to Visit Medication Sig Dispense Refill cholecalciferol, vitamin D3, (VITAMIN D3 ORAL) Take by mouth . lactobacillus combo no.11 (Probiotic) 15 billion cell CpSP Take by mouth . zinc sulfate (ZINC-15 ORAL) Take by mouth . No current facility-administered medications on file prior to visit. ALLERGIES/INTOLERANCES Allergies Allergen Reactions Sulfa (Sulfonamide Antibiotics) OBJECTIVE BP 117/77 Pulse 62 Temp 98.1 F (36.7 C) (Tympanic) Resp 14 Wt 71.7 kg (158 lb) SpO2 97% Physical Exam Vitals and nursing note reviewed. Constitutional: Appearance: Normal appearance. HENT: Head: Normocephalic and atraumatic. Nose: Nose normal. Mouth/Throat: Mouth: Mucous membranes are moist. Eyes: General: No scleral icterus. Pupils: Pupils are equal, round, and reactive to light. Cardiovascular: Rate and Rhythm: Normal rate and regular rhythm. Pulmonary: Effort: Pulmonary effort is normal. Breath sounds: Normal breath sounds. Abdominal: General: Abdomen is flat. Tenderness: There is no abdominal tenderness. Comments: Abdomen soft no apparent masses tenderness guarding or rebound. No CVA tenderness. Musculoskeletal: General: No signs of injury. Normal range of motion. Skin: General: Skin is warm and dry. Capillary Refill: Capillary refill takes less than 2 seconds. Findings: No rash. Neurological: Mental Status: She is alert. Psychiatric: Mood and Affect: Mood normal. PROCEDURE Procedures Results Recent Results (from the past 168 hour(s)) POC Urinalysis Dipstick,Auto UC Collection Time: 04/14/21 4:00 PM Result Value Ref Range POC Color, Urine Yellow Yellow, Light Yellow, Dark Yellow Clarity, UA Slightly Cloudy (A) Clear Glucose, UA Negative Normal, Negative mg/dL Bilirubin, UA Negative Negative Ketones, UA Negative Negative mg/dL Spec Grav, UA 1.020 (A) 1.005 - 1.025 Blood, UA Moderate (A) Negative pH, UA 8.0 (A) 5.0 - 7.0 Protein, UA 100 (A) Negative mg/dL Urobilinogen, UA 1.0 <2.0, 0.2, Normal, Negative, 1.0, 2.0, <1.0 mg/dL Nitrite, UA Positive (A) Negative Leukocyte Esterase, UA Large (A) Negative No orders to display ASSESSMENT/PLAN (expressed as patient instructions): 1. Dysuria POC Urinalysis Dipstick,Auto UC 2. Acute cystitis without hematuria Urine culture Return in about 8 days (around 04/22/2021), or your doctor. ADDITIONAL CLINICAL COMMENTS [id number] urinalysis positive for nitrates and positive for leukocytes. Was sent for urine culture. We will treat the patient with Cipro 500 mg twice a day for 7 days and Pyridium 200 mg 1 3 times daily. Painful urination. Return precautions given. Discussed over the counter medications for symptomatic management and side effects of medications. Recommended taking all medications with food and to stop medications if they develop any signs of an allergic reaction. Educated patient and/or guardian about signs and symptoms that would warrant further immediate evaluation. Recommended that they should return to urgent care, make an appointment with their family physician, or go to the emergency room if symptoms persist or get acutely worse. Recommended follow up within the next week with their PCP or to get established with a PCP soon in order to follow up appropriately. ORDERS PLACED THIS VISIT Orders Placed This Encounter Procedures Urine culture POC Urinalysis Dipstick,Auto UC MEDICATION LIST AT END OF VISIT Current Outpatient Medications Medication Sig Dispense Refill cholecalciferol, vitamin D3, (VITAMIN D3 ORAL) Take by mouth . lactobacillus combo no.11 (Probiotic) 15 billion cell CpSP Take by mouth . zinc sulfate (ZINC-15 ORAL) Take by mouth . ciprofloxacin HCl (Cipro) 500 MG tablet Take 1 (one) tablet (500 mg total) by mouth 2 (two) times a day for 7 days . 14 tablet 0 phenazopyridine (PYRIDIUM) 200 MG tablet Take 1 (one) tablet (200 mg total) by mouth 3 (three) times a day as needed for pain . 6 tablet 0 No current facility-administered medications for this visit. documented in this encounter [facility] 04-14-2021 Instructions Sabino Bermudez DO - 04/14/2021 4:18 PM EDT Images from the original note were not included. Urinary Tract Infection (UTI) in Women: Care Instructions Overview A urinary tract infection, or UTI, is a general term for an infection anywhere between the kidneys and the urethra (where urine comes out). Most UTIs are bladder infections. They often cause pain or burning when you urinate. UTIs are caused by bacteria and can be cured with antibiotics. Be sure to complete your treatment so that the infection does not get worse. Follow-up care is a delgado part of your treatment and safety. Be sure to make and go to all appointments, and call your doctor if you are having problems. It's also a good idea to know your test results and keep a list of the medicines you take. How can you care for yourself at home? Take your antibiotics as directed. Do not stop taking them just because you feel better. You need to take the full course of antibiotics. Drink extra water and other fluids for the next day or two. This will help make the urine less concentrated and help wash out the bacteria that are causing the infection. (If you have kidney, heart, or liver disease and have to limit fluids, talk with your doctor before you increase the amount of fluids you drink.) Avoid drinks that are carbonated or have caffeine. They can irritate the bladder. Urinate often. Try to empty your bladder each time. To relieve pain, take a hot bath or lay a heating pad set on low over your lower belly or genital area. Never go to sleep with a heating pad in place. To prevent UTIs Drink plenty of water each day. This helps you urinate often, which clears bacteria from your system. (If you have kidney, heart, or liver disease and have to limit fluids, talk with your doctor before you increase the amount of fluids you drink.) Urinate when you need to. If you are sexually active, urinate right after you have sex. Change sanitary pads often. Avoid douches, bubble baths, feminine hygiene sprays, and other feminine hygiene products that have deodorants. After going to the bathroom, wipe from front to back. When should you call for help? Call your doctor now or seek immediate medical care if: Symptoms such as fever, chills, nausea, or vomiting get worse or appear for the first time. You have new pain in your back just below your rib cage. This is called flank pain. There is new blood or pus in your urine. You have any problems with your antibiotic medicine. Watch closely for changes in your health, and be sure to contact your doctor if: You are not getting better after taking an antibiotic for 2 days. Your symptoms go away but then come back. Where can you learn more? Log into your personal health record on?[email or web address]?and enter?K848?in the Education box to learn more about Urinary Tract Infection (UTI) in Women: Care Instructions. Current as of: October 23, 2020 Content Version: 12.9 [employer]. Care instructions adapted under license by your healthcare professional. If you have questions about a medical condition or this instruction, always ask your healthcare professional. [employer] disclaims any warranty or liability for your use of this information. documented in this encounter [facility] Evaluation note Diagnosis Dysuria- Primary Acute cystitis without hematuria [facility] available[facility] Work Phone: Evaluation note* Diagnosis S/P laparoscopic hysterectomy- Primary Acquired absence of both cervix and uterus documented in this encounter [facility] Work Phone: Evaluation note* Diagnosis UTI symptoms- Primary [facility] Diagnosis Hyperlipidemia, unspecified documented in this encounter [facility] Work Phone: Evaluation note* Diagnosis Pre-operative examination- Primary Unspecified pre-operative examination Vitreous hemorrhage of left eye (HCC) Vitreous hemorrhage Hyperlipidemia, unspecified hyperlipidemia type [facility] Name Dates Details Patient Instructions Indication:[facility] EXAM Start:10-Mar-2022 Instruction Type:Provider Instructions for Treatment [facility]; [facility] Work Phone: instructions* Name Dates Details Patient Instructions Indication:Left knee pain Start:03-Jun-2022 Instruction Type:Provider Instructions for Treatment How to Access Health Informa tion Online using Patient Portal and [employer]rd [employer] Apps Indication:Left knee pain Start:03-Jun-2022 Instruction Type:Patient Education Patient Instructions Indication:[facility] Start:10-Mar-2022 Instruction Type:Provider Instructions for Treatment [facility] Work Phone: instructions* Name Dates Details Patient Instructions Indication:Left knee pain Start:03-Jun-2022 Instruction Type:Provider Instructions for Treatment How to Access Health Informa tion Online using Patient Portal and [employer] Apps Indication:Left knee pain Start:03-Jun-2022 Instruction Type:Patient Education Patient Instructions Indication:[facility] Start:10-Mar-2022 Instruction Type:Provider Instructions for Treatment [facility] Work Phone: instructions* Name Dates Details Patient Instructions Indication:Left knee pain Start:03-Jun-2022 Instruction Type:Provider Instructions for Treatment How to Access Health Informa tion Online using Patient Portal and [employer] Apps Indication:Left knee pain Start:03-Jun-2022 Instruction Type:Patient Education Patient Instructions Indication:[facility] Start:10-Mar-2022 Instruction Type:Provider Instructions for Treatment [facility] Work Phone: instructions* Name Dates Details Patient Instructions Indication:Left knee pain Start:03-Jun-2022 Instruction Type:Provider Instructions for Treatment How to Access Health Informa tion Online using Patient Portal and [employer]rd [employer] Apps Indication:Left knee pain Start:03-Jun-2022 Instruction Type:Patient Education Patient Instructions Indication:[facility] Start:10-Mar-2022 Instruction Type:Provider Instructions for Treatment [facility] Work Phone: instructions* Name Dates Details Patient Instructions Indication:Left knee pain Start:03-Jun-2022 Instruction Type:Provider Instructions for Treatment How to Access Health Informa tion Online using Patient Portal and [employer]rd [employer] Apps Indication:Left knee pain Start:03-Jun-2022 Instruction Type:Patient Education Patient Instructions Indication:[facility] Start:10-Mar-2022 Instruction Type:Provider Instructions for Treatment [facility] Work Phone: reason for referral (narrative)No reason for referral [facility] Work Phone: Advance Directives No Advanced Directives Records FoundDocuments on File Type Date Recorded Patient Manager Generation Expl anation Advance Directives and Living Will Latest Code Status on File Code Status Date Activated Date Inactivated Comments Full Code 01/28/2022 9:44 AM Chief Complaint and Reason for Visit Chief Complaint UTI Chief Complaint LEFT KNEE PAIN SCREENING Chief Complaint SCREEN Chief Complaint Admit Date XRAY January 23, 2025 10:50 am Summary Purpose Family History No Family History Records FoundUnknown Family Member Name Dates Details Father Comments:blood clots Status:Active Maternal Grandfather Comments:stroke Status:Active Maternal Grandmother Comments:diabetes Status:Active Mother Comments:hypertension, heart , dementia Status:Active Unknown Family Member Name Dates Details Father Comments:blood clots Status:Active Maternal Grandfather Comments:stroke Status:Active Maternal Grandmother Comments:diabetes Status:Active Mother Comments:hypertension, heart , dementia Status:Active Unknown Family Member Name Dates Details Father Comments:blood clots Status:Active Maternal Grandfather Comments:stroke Status:Active Maternal Grandmother Comments:diabetes Status:Active Mother Comments:hypertension, heart , dementia Status:Active Unknown Family Member Name Dates Details Father Comments:blood clots Status:Active Maternal Grandfather Comments:stroke Status:Active Maternal Grandmother Comments:diabetes Status:Active Mother Comments:hypertension, heart , dementia Status:Active Unknown Family Member Name Dates Details Father Comments:blood clots Status:Active Maternal Grandfather Comments:stroke Status:Active Maternal Grandmother Comments:diabetes Status:Active Mother Comments:hypertension, heart , dementia Status:Active Unknown Family Member Name Dates Details Father Comments:blood clots Status:Active Maternal Grandfather Comments:stroke Status:Active Maternal Grandmother Comments:diabetes Status:Active Mother Comments:hypertension, heart , dementia Status:Active Unknown Family Member Name Dates Details Father Comments:blood clots Status:Active Maternal Grandfather Comments:stroke Status:Active Maternal Grandmother Comments:diabetes Status:Active Mother Comments:hypertension, heart , dementia Status:Active Reason for Referral Specialty Diagnoses / Procedures Referred By Contac t Referred To Contact Radiology Diagnoses Hyperlipidemia, unspecified Procedures CT cardiac scoring wo IV contrast Fast, Tahira A, DO [address] [facility] [address] [place] [address] Referral ID Status Reason Start Date Expiration Date Visits Requested Visits Authorized [id number] Authorized Perform Procedure 01/17/2024 01/16/2025 1 1 Additional Source Comments Reason for Visit (unrecogniz ed section and content) Reason Comments Dysuria Pain and frequency w ith little output x 1 day. PT started taking Mucinex yesterday for some cold symptoms and this started about 4 hours later. States she looked at the Mucinex side effects and it said after taking if trouble urinating seek medical attention. Urinary Frequency Reason Comments Urinary Tract Infection Frequency, pain was on an antibiotic 1 week ago, symptoms returned Specialty Diagnoses / Procedures Referred By Contac t Referred To Contact Radiology Diagnoses Hyperlipidemia, unspecified Procedures CT cardiac scoring wo IV contrast Fast, Tahira A, DO [address] [facility] [address] [place] [address] Referral ID Status Reason Start Date Expiration Date Visits Requested Visits Authorized [id number] Authorized Perform Procedure 01/17/2024 01/16/2025 1 1 Reason Comments Perioperative Medical Evaluation H43.12 Goals (unrecognized section and content) Goals may be documented in a n alternate sectionGoals may be documented in an alternate sectionGoals may be documented in an alternate sectionGoals may be documented in an alternate sectionGoals may be documented in an alternate section Ordered Prescriptions (unrec ognized section and content) Prescription Sig Dispensed Refills Start Date End Da te docusate sodium (COLACE) 100 MG capsule Take 1 capsule by mouth daily as needed for Constipation 30 capsule 0 01/28/2022 ibuprofen (ADVIL;MOTRIN) 600 MG tablet Take 1 tablet by mouth 3 times daily as needed for Pain 30 tablet 1 01/28/2022 oxyCODONE (ROXICODONE) 5 MG immediate release tabletIndications:S/P laparoscopic hysterectomy Take 1 tablet by mouth every 6 hours as needed for Pain for up to 5 days. Intended supply: 5 days. Take lowest dose possible to manage pain 20 tablet 0 01/28/2022 02/02/2022 Scheduled Active and Recently Administ ered Medications (unrecognized section and content) Medication Order 01/26/2022 01/27/2022 01/28/2022 acetaminophen (TYLENOL) tablet 1,000 mg (COMPLETED) 1,000 mg, Oral, ONCE, 1 dose, On Wed01/28/22 at 1015, Maximum dose of acetaminophen is 4000 mg from all sources in 24 hours. Do not administer if patient has taken tylenol <4 hours earlier. Do not give if contraindicated ie. patient has active liver disease or cirrhosis., Pre-op (day of surgery) 1016 (Given - Provid er: Libertad Fabian RN) ceFAZolin (ANCEF) 2000 mg in dextrose 4 % 100 mL IVPB (premix) 2,000 mg, IntraVENous, LUMBER PILER TO O.R., 1 dose, On Wed01/28/22 at 1000, Antimicrobial Indications: Surgical Prophylaxis, Administer within 1 hour prior to incision. Recommend to repeat in 3-4 hours after initial dose if still intra-op., Pre-op (day of surgery) 1000 (Due) chlorhexidine 2% cloth (COMPLETED) Topical, ONCE, On Wed01/28/22 at 1015, For 1 dose, RN to assist patient to wipe abdominal skin in pre op, Pre-op (day of surgery) 1018 (Given - Provid er: Libertad Fabian RN) famotidine (PEPCID) tablet 20 mg (COMPLETED) 20 mg, Oral, ONCE, 1 dose, On Wed01/28/22 at 1015, Pre-op (day of surgery) 1016 (Given - Provid er: Libertad Fabian, ARTHUR) gabapentin (NEURONTIN) capsule 100 mg (COMPLETED) 100 mg, Oral, ONCE, 1 dose, On Wed01/28/22 at 1015, For Age >69, or Low GFR, Pre-op (day of surgery) 1016 (Given - Provid er: Libertad Fabian RN) sodium chloride flush 0.9 % injection 5-40 mL 5-40 mL, IntraVENous, EVERY 12 HOURS SCHEDULED (2 times per day), First dose on Wed01/28/22 at 1000, Until Discontinued, For Line Patency: Peripheral IV = 5 mL; Midline or Central Line = 10 mL/lumen. If following IV push medication, administer flush at same rate as the IV push. Flush volume is determined by type of infusion therapy being given. For non-viscous solutions use: Peripheral IV = 5 mL Midline or Central Line = 10 mL/lumen For viscous solutions (i.e. blood components, parenteral nutrition, contrast media, or after obtaining blood sample) use: Peripheral IV = 10 mL Midline or Central Line = 20 mL/lumen, Pre-op (day of surgery) 1000 (Due)2100 (Due) sodium chloride flush 0.9 % injection 5-40 mL 5-40 mL, IntraVENous, EVERY 12 HOURS SCHEDULED (2 times per day), First dose on Wed01/28/22 at 2100, Until Discontinued, For Line Patency: Peripheral IV = 5 mL; Midline or Central Line = 10 mL/lumen. If following IV push medication, administer flush at same rate as the IV push. Flush volume is determined by type of infusion therapy being given. For non-viscous solutions use: Peripheral IV = 5 mL Midline or Central Line = 10 mL/lumen For viscous solutions (i.e. blood components, parenteral nutrition, contrast media, or after obtaining blood sample) use: Peripheral IV = 10 mL Midline or Central Line = 20 mL/lumen, PACU only 2100 (Due) Continuous Medication Order 01/26/2022 01/27/2022 01/28/2022 lactated ringers infusion IntraVENous, at 50 mL/hr, CONTINUOUS, Starting on Wed01/28/22 at 1000, Upon admission to sameday - please start iv if patient does not have iv access. Use 500ml NS for patients on dialysis., Pre-op (day of surgery) 1016 (New Bag - Prov ider: Libertad Fabian RN) lactated ringers infusion IntraVENous, at 50 mL/hr, CONTINUOUS, Starting on Wed01/28/22 at 1400, PACU only 1400 (Due) PRN Medication Order 01/26/2022 01/27/2022 01/28/2022 0.9 % sodium chloride bolus 500 mL (7.06 mL/kg), IntraVENous, at 1,000 mL/hr, Administer over 0.5 Hours, PRN, Anti-nausea, Starting on Wed01/28/22 at 1344, PACU only 0.9 % sodium chloride infusion IntraVENous, at 5-250 mL/hr, PRN, if patient receiving piggyback infusions and maintenance fluids are not ordered OR KVO fluids to protect IV site / prevent frequent line interruptions/ long duration, Starting on Wed01/28/22 at 0944, For piggyback infusion, administer at same rate as piggyback for a total of 25 mL. Enter 25 mL into dose field and piggyback rate into rate field of order. If piggyback is infusing at a rate less than 100 mL/hr, enter 25 mL into dose field and 100 mL/hr into rate field of order. For KVO fluids, enter rate of 20 mL/hr or less into rate field of order., Pre-op (day of surgery) ALPRAZolam (NIRAVAM) dissolvable tablet 0.25 mg 0.25 mg, Oral, PRN, Starting on Wed01/28/22 at 0945, Until Discontinued, Anxiety, Pre-op (day of surgery) diphenhydrAMINE (BENADRYL) injection 12.5 mg 12.5 mg, IntraVENous, ONCE PRN, 1 dose, Starting on Wed01/28/22 at 1344, Until Wed01/28/22 at 2359, Itching, for use [employer] and, PACU only fentaNYL (SUBLIMAZE) injection 25 mcg 25 mcg, IntraVENous, EVERY 5 MIN PRN, 3 doses, Starting on Wed01/28/22 at 1344, Until Discontinued, Pain Moderate (4-6), Phase I and Phase II- Initial therapy for moderate pain (4-6). Restricted to a 90 minute time frame starting when the patient can verbally state their pain score. If after 2 doses the pain score does not decrease by more than one point, then call the provider. If oral meds are utilized, do not return to initial therapy medications. SDS and, PACU only 1347 (Given - Provid er: Kristina Woody RN) fentaNYL (SUBLIMAZE) injection 50 mcg 50 mcg, IntraVENous, EVERY 5 MIN PRN, 3 doses, Starting on Wed01/28/22 at 1344, Until Discontinued, Pain Severe (7-10), Phase I or Phase II- Initial therapy for severe pain (7-10). Restricted to a 90 minute time frame starting when the patient can verbally state their pain score. If after 2 doses the pain score does not decrease by more than one point, then call the provider. If oral meds are utilized, do not return to initial therapy medications. SDS and, PACU only hydrALAZINE (APRESOLINE) injection 5 mg(Linked Group 1) 5 mg, IntraVENous, EVERY 10 MIN PRN, 2 doses, Starting on Wed01/28/22 at 1343, Until Discontinued, High Blood Pressure, PRN for SBP > 160 for 2 consecutive measurements, and if one of the following conditions is met: 1) If IV labetolol is ineffective. 2) If HR is under 60. 3) If patient has heart block, COPD or asthma. If both labetalol and hydralazine ineffective, notify anesthesiologist. for use [employer]ay and, PACU only labetalol (NORMODYNE;TRANDATE) injection 5 mg(Linked Group 1) 5 mg, IntraVENous, EVERY 10 MIN PRN, 2 doses, Starting on Wed01/28/22 at 1343, Until Discontinued, High Blood Pressure, PRN for SBP >160 for 2 consecutive measurements, if HR is 60 or greater. If beta saniya is contraindicated (HR less than 60, heart block, COPD or asthma) use hydralazine IV order. for use Sameday and, PACU only lidocaine PF 1 % injection 1 mL 1 mL, IntraDERmal, ONCE PRN, 1 dose, Starting on Wed01/28/22 at 0944, Until Wed01/28/22 at 2359, IV start, Pre-op (day of surgery) LORazepam (ATIVAN) injection 0.5 mg 0.5 mg, IntraVENous, ONCE PRN, 1 dose, Starting on Wed01/28/22 at 1344, Until Wed01/28/22 at 2359, for anxiety or muscle spasm., PACU only meperidine (DEMEROL) injection 12.5 mg 12.5 mg, IntraVENous, EVERY 5 MIN PRN, 4 doses, Starting on Wed01/28/22 at 1344, Until Discontinued, Shivering, , May give every 5 minutes to max of 50mg. for use Sameday and, PACU only ondansetron (ZOFRAN) injection 4 mg 4 mg, IntraVENous, ONCE PRN, 1 dose, Starting on Wed01/28/22 at 1344, Until Wed01/28/22 at 2359, Nausea, Initial antiemetic therapy. For use sameday and, PACU only oxyCODONE (ROXICODONE) immediate release tablet 5 mg (COMPLETED) 5 mg, Oral, PRN, 1 dose, Starting on Wed01/28/22 at 1343, Until Wed01/28/22 at 2359, Pain Moderate (4-6), PHASE II, PACU only 1425 (Given - Provid er: Kristina Woody RN) sodium chloride flush 0.9 % injection 5-40 mL 5-40 mL, IntraVENous, PRN, Starting on Wed01/28/22 at 0944, Until Discontinued, Line Care, After every IV line use, For Line Patency: Peripheral IV = 5 mL; Midline or Central Line = 10 mL/lumen. If following IV push medication, administer flush at same rate as the IV push. Flush volume is determined by type of infusion therapy being given. For non-viscous solutions use: Peripheral IV = 5 mL Midline or Central Line = 10 mL/lumen For viscous solutions (i.e. blood components, parenteral nutrition, contrast media, or after obtaining blood sample) use: Peripheral IV = 10 mL Midline or Central Line = 20 mL/lumen, Pre-op (day of surgery) sodium chloride flush 0.9 % injection 5-40 mL 5-40 mL, IntraVENous, PRN, Starting on Wed01/28/22 at 1344, Until Discontinued, Line Care, After every IV line use, For Line Patency: Peripheral IV = 5 mL; Midline or Central Line = 10 mL/lumen. If following IV push medication, administer flush at same rate as the IV push. Flush volume is determined by type of infusion therapy being given. For non-viscous solutions use: Peripheral IV = 5 mL Midline or Central Line = 10 mL/lumen For viscous solutions (i.e. blood components, parenteral nutrition, contrast media, or after obtaining blood sample) use: Peripheral IV = 10 mL Midline or Central Line = 20 mL/lumen, PACU only Linked Groups Order Group 1: labetalol (NORMODYNE;TRANDATE) injection 5 mgJump to med 5 mg, IntraVENous, EVERY 10 MIN PRN, 2 doses, Starting on Wed01/28/22 at 1343, Until Discontinued, High Blood Pressure
PRN for SBP >160 for 2 consecutive measurements, if HR is 60 or greater. If beta saniya is contraindicated (HR less than 60, heart block, COPD or asthma) use hydralazine IV order. for use Sameday and
PACU only Or hydrALAZINE (APRESOLINE) injection 5 mgJump to med 5 mg, IntraVENous, EVERY 10 MIN PRN, 2 doses, Starting on Wed01/28/22 at 1343, Until Discontinued, High Blood Pressure
PRN for SBP > 160 for 2 consecutive measurements, and if one of the following conditions is met: 1) If IV labetolol is ineffective. 2) If HR is under 60. 3) If patient has heart block, COPD or asthma. If both labetalol and hydralazine ineffective, notify anesthesiologist. for use S[employer]ay and
PACU only Care Teams (unrecognized sec tion and content) Senior Windows Systems Administrator Relationship Specialty Start Date End Date Tahira Patel DO [address] [place] [id number] PCP - General Internal Medicine 01/26/22 Senior Windows Systems Administrator Relationship Specialty Start Date End Date No, Physician [facility] PCP - General 04/14/21 Team Status: Active Member Role Status Dates Dr. Butch Haider MD Family Provider Active Dr. Tahira Patel DO Primary Care Provider Active Team Status: Inactive Member Role Status Dates Dr. Tahira Patel DO Primary Care Provider Active Dr. Dora Mcintyre MD Attending Provider, Referr ing Provider Active Senior Windows Systems Administrator Relationship Specialty Start Date End Date Tahira Patel DO [address] [address] PCP - General Internal Medicine 01/26/24 Senior Windows Systems Administrator Relationship Specialty Start Date End Date No, Physician [facility] PCP - General 04/14/21 Team Status: Inactive Member Role Status Dates Dr. Tahira Patel DO Primary Care Provider Active Start: January 23, 2025 End: January 23, 2025 Dr. Giovanny Hennessy MD Attending Provider Active S tart: January 23, 2025 End: January 23, 2025 INFORMATION SOURCE (unrecogn ized section and content) DATE CREATED AUTHOR 02/03/2022 [facility] DATE CREATED AUTHOR AUTHOR'S ORGANIZ ATION 06/14/2022 [facility] DATE CREATED AUTHOR AUTHOR'S ORGANIZ ATION 05/16/2023 [facility] DATE CREATED AUTHOR AUTHOR'S ORGANIZ ATION 03/30/2024 [facility] DATE CREATED AUTHOR AUTHOR'S ORGANIZ ATION 08/24/2024 [facility] DATE CREATED AUTHOR AUTHOR'S ORGANIZ ATION 02/26/2025 [facility] FOR RECORDS PERTAINING TO PATIENTS WHO ARE OR HAVE BEEN ENROLLED IN A CHEMICAL DEPENDENCY/SUBSTANCEABUSE PROGRAM, SOME INFORMATION MAY BE OMITTED. This clinical summary was aggregated from multiple sources. Caution should be exercised in using it in the provision of clinical care. This summary normalizes information from multiple sources, and as a consequence, information in this document may materially change the coding, format and clinical context of patient data. In addition, data may be omitted in some cases. CLINICAL DECISIONS SHOULD BE BASED ON THE PRIMARY CLINICAL RECORDS. [employer] provides no warranty or guarantee of the accuracy or completeness of information in this document.
--- NOTE | 2025-03-01 08:17 | CT_ITS ---
PROCEDURE: ABDOMEN WITH IV CONTRAST 03/01/2025 REASON FOR EXAM: CT ABDOMEN W/ IV CONTRAST - LUQ PAIN TECHNIQUE: ABDOMEN WITH IV CONTRAST. Multiplanar Sagittal and Coronal images were obtained. One or more dose reduction techniques were used (e.g., Automated exposure control, adjustment of the mA and/or kV according to patient size, use of iterative reconstruction technique. CONTRAST: Isovue-300 VOLUME: 100 mL RADIATION DOSE SUMMARY: CTDlvol: 16 mGy DLP: 436.43 mGycm COMPARISON: None FINDINGS: Lung bases: Unremarkable Liver: Normal size. No mass. Gallbladder: Unremarkable. Spleen: Normal size. Pancreas: Normal size without evidence of mass surrounding inflammation or ductal dilation. Adrenals: Unremarkable Kidneys: Bilateral parapelvic renal cysts. Bowel: Unremarkable Lymph nodes: Unremarkable. Vasculature: Unremarkable Peritoneum / Retroperitoneum: Unremarkable Status post hysterectomy. Bones: Degenerative changes of the spine. Levoconvex scoliosis. CT/Abdomen WITH IV Contrast IMPRESSION: Bilateral parapelvic cysts. Status post hysterectomy. No acute abnormality is seen. Reading Location: [place] [address]
--- NOTE | 2025-03-01 10:20 | RAD_ITS ---
PROCEDURE: ESOPHAGUS DUAL CONTRAST 03/01/2025 REASON FOR EXAM: ESOPHAGRAM, 12MM - DYSPHAGIA TECHNIQUE: ESOPHAGUS DUAL CONTRAST The patient ingested barium. Multiple images were obtained. The patient ingested a 12 mm tablet the barium. 47 seconds of fluoroscopy. 4.8 mGy. COMPARISON: None FINDINGS: There is free flow of contrast into the stomach. There is mild narrowing of the esophagus at the level of the aortic arch. The ingested a 12 mm tablet the barium is trapped at that site. Endoscopic correlation recommended. RAD/Esophagus Dual Contrast IMPRESSION: The ingested a 12 mm tablet the barium is trapped in the midesophagus at the le anderson of the aortic arch as described. Endoscopic correlation recommended. Reading Location: [facility]
== END | disposition home or self-care (01) ==
PROVIDERS: PCP Internal Medicine; Referring Provider Internal Medicine; Visit Provider Internal Medicine
DX: R10.12 Left upper quadrant pain (principal); R13.10 Dysphagia, unspecified
CPT/HCPCS: 74160; 74221; Q9967

== ENCOUNTER → 2025-07-18 | Outpatient (CLI) | payer MEDICARE, SELFPAY ==
[2025-07-18 15:22] LABS: Hematocrit 44.9 % (37-47); Hemoglobin 13.7 g/dL (12.0-15.0); Immature Granulocytes Count 0.010 X10^3/uL (0.0-0.0); Mean Corp Hgb Conc 30.5 g/dL (32-36); Mean Corpuscular Volume 97.4 fL (81-99); Mean Platelet Vol. 10.1 fl (6.2-12.0); NRBC Flagged by Analyzer 0 % (0-5); Platelet Count 265 K/mm3 (150-450); RBC Distribution Width CV 12.4 % (11.6-14.6); RBC Distribution Width SD 45.0 fl (35.1-43.9); Red Blood Count 4.61 M/mm3 (4.2-5.4); White Blood Count 6.2 K/mm3 (4.4-11.0)
[2025-07-18 16:20] LABS: AST(SGOT) 23 U/L (<=31); Alanine Aminotransfer ALT/SGPT 13 U/L (<=34); Albumin, Serum 4.1 g/dL (3.4-4.8); Alkaline Phosphatase 58 U/L (35-104); Anion Gap 11 (5-15); BUN 19 mg/dL (4-19); BUN/Creat Ratio 20.5 RATIO (10-20); Calcium,Total 9.3 mg/dL (7.6-11.0); Carbon Dioxide 23.8 mmol/L (21.0-32.0); Chloride 105 mmol/L (98-108); Globulin 2.7 g/dL (2.2-4.2); Glucose 81 mg/dL (70-99); Potassium 4.3 mmol/L (3.3-5.1)
== END | disposition home or self-care (01) ==
LOC: CIMLAB 11:56
PROVIDERS: PCP Internal Medicine; Referring Provider Internal Medicine; Visit Provider Internal Medicine
DX: Z01.818 Encounter for other preprocedural examination (principal)
CPT/HCPCS: 36415; 80053; 85025

== ENCOUNTER → 2025-08-29 | Outpatient (CLI) | payer MEDICARE, SELFPAY ==
--- NOTE | 2025-08-29 08:15 | BI_ITS ---
EXAM: SCRN MAMM (CAD)W/OZ BILAT DATE: 08/29/2025 CLINICAL HISTORY: F, Age 65 y/o , BILAT BRST SCREEN OZ ADD-ON No family history. TECHNIQUE: Procedure Code: [id number] Modality: MG Procedure: SCRN MAMM (CAD)W/OZ BILAT COMPARISON: Prior exam(s) dated August 02, 2024.. FINDINGS: TISSUE DENSITY: The breasts are extremely dense, which lowers the sensitivity of mammography. Bilateral Breast Mammographic Findings: No significant masses, calcifications or other abnormalities are identified. No suspicious masses, areas of developing architectural distortion, or suspicious calcifications. There has been no significant interval change. BI/SCRN MAMM (CAD)W/OZ BILAT IMPRESSION: Stable bilateral screening mammogram. OVERALL FINAL ASSESSMENT BI-RADS 1: NEGATIVE. RECOMMENDATION: Routine annual follow-up in 1 Year Additional Recommendation none A letter with findings and recommendations will be mailed to the patient. Reading Location: [facility]
== END | disposition home or self-care (01) ==
LOC: OPBI 08:17
PROVIDERS: PCP Internal Medicine; Referring Provider Internal Medicine; Visit Provider Internal Medicine
DX: Z12.31 Encounter for screening mammogram for malignant neoplasm of breast (principal)
CPT/HCPCS: 77063; 77067